=== PATIENT | male | born 1975 | race Caucasian/White ===

== ENCOUNTER 2025-03-29 14:11 | Inpatient (IN) | payer BC, SELFPAY ==
[2025-03-29] VITALS (13 sets, daily range): BP systolic 120–149; BP diastolic 76–91; PULSE 82–103; RESP 12–24; TEMP 36.4–36.9; O2SAT 93–98; BMI 37.8
--- NOTE | ~2025-03-29 | XR_ITS ---
XR chest 1V portable Ordering provider: Mau Hart MD History: 50 years Male with . stemi . Comparison: None. FINDINGS: MEDIASTINUM: The cardiac silhouette is not enlarged. Congestive [place]. LUNGS: No infiltrates, effusions or pneumothorax. Prominent bronchovascular markings in the lower lob es with bilateral septal thickening which may indicate pulmonary edema versus pneumonitis. Clinical c orrelation and follow-up advised. OTHER: No free air under the diaphragm. Degenerative spine. IMPRESSION: Prominent bronchovascular markings in the lower lobes with septal thickening which may indicate pneum onitis versus pulmonary edema. Clinical correlation and follow-up advised. Reviewed, dictated and finalized at location A. IMPRESSION: Prominent bronchovascular markings in the lower lobes with septal thickening wh ich may indicate pneumonitis versus pulmonary edema. Clinical correlation and f ollow-up advised.
--- NOTE | 2025-03-29 14:16 | ECG_ITS ---
Test Date: 2025-03-29 14:17:35 Measurements Intervals [place] Rate: 92 P: 24 NH: 162 QRS: -16 QRSD: 98 T: 29 QT: 350 QTc: 435 Interpretive Statements SINUS RHYTHM POSSIBLE RIGHT VENTRICULAR CONDUCTION DELAY [RSR (QR) IN V1/V2] ANTERIOR MYOCARDIAL INFARCTION , OF INDETERMINATE AGE [40+ ms Q WAVE AND/OR ST/T ABNORMALITY IN V3/V4] ANTERIOR ST-ELEVATION, CONSISTENT WITH ACUTE INJURY PATTERN CRITICAL ECG No previous ECG available for comparison Electronically Signed On 03-29-2025 16:06:28 CDT by Rod Messina M.D.
[2025-03-29 14:24] LABS: Hematocrit 47.5 % (42.0-52.0); Hemoglobin 16.7 g/dL (14.0-18.0); Immature Granulocyte Percent A 0.8 % (0-0.5); Lymphocytes Absolute Auto 1.87 K/mm3 (0.9-3.2); Mean Corpuscular HGB Conc 35.2 g/dl (32-36); Mean Corpuscular Hemoglobin 31.6 pg (26-34); Mean Corpuscular Volume 89.8 fl (80-100); Nucleated Red Blood Cells Absolute Auto 0.000 K/mm3 (0.0-0.012); Nucleated Red Blood Cells Perc 0.0 % (0.0-0.2); Platelet Count Result 280 k/mm3 (150-375); Red Blood Count 5.29 M/mm3 (4.6-6.20); White Blood Count 10.7 K/mm3 (4.5-10.0)
--- OUTSIDE RECORDS SUMMARY | 2025-03-29 14:27 | XMS_ITS | Data Portability ---
Author Organization [facility] Address [address] [place] [address] Assessment Encounter Date Assessment Date Assessment LastModified by Organization Details LastModified Time 02/08/2022 02/08/2022 1 ppd x 31 years [email or web address] Not available 02/08/2022 11:44:59 Plan of Treatment Reminders Order Date Submit Date Provider Last Modified By Organization Details Last Modified Time Details Appointments ANY 15 2024 09:15A Karina peterson MD Not available Not available Not available Lab CMP, serum or plasma 2024 025 DANIEL LABBERNARDO, [address] [place], [place] [address]erlin Reza, [facility] [address], [place], [address], 02/14/2025 14:38:45 microa lbumin /creat inine, mass ratio, urine 2024 025 DANIEL LABBERNARDO, [facility] Reza, [facility] [address], [place], [address], 02/14/2025 14:38:45 microa lbumin /creat inine, mass ratio, urine 2023 024 DANIEL HAMILTON, [facility] Reza, [address], [place], [address], 12/28/2023 10:12:42 CMP, serum or plasma 2023 024 DANIEL HAMILTON, [facility]ra Reza, [address], [place], [address], 12/28/2023 10:12:44 lipid panel, serum 2023 024 [place], [address] [facility], [address], [place], [address], 12/28/2023 10:12:43 TSH, ultra- sensit sathya, serum 2023 024 [facility], [address] [facility], [address], [place], [address], 12/28/2023 10:12:45 CMP, serum or plasma [address] ([facility]), [address] [place], [address], 11/21/2022 13:58:31 lipid panel, serum 2021 022 [facility] ([facility]), [address] [place], [address], 11/03/2022 11:43:32 microa lbumin /creat inine, mass ratio, urine [address] ([facility]), [address] [place], [address], 11/21/2022 13:58:31 Referral pulmon ologis t referr julissa - Sx c/w sleep apnea and home sleep study + 2021 022 [facility], [address] [facility], [facility] [address], [place], [address], 02/07/2023 14:48:20 plasti c surgeo n referr al 2021 [email or web address] Not available 06/30/2022 10:52:11 Procedures None record ed. Surgeries None record ed. Imaging LDCT, chest, for lung cancer screen ing - 1 PPD x 38 years 2024 025 [facility] ([facility]), [address] [place], [address], 02/28/2025 09:23:59 XR, chest, 2 view - cough 2024 025 [facility] Not available 03/20/2025 10:28:49 LDCT, chest, for lung cancer screen ing - 1 ppd x 37 years, wandaen t smoker , schedu le after birthd ay! 2023 024 [facility] ([facility]), [address] [place], [address], 03/08/2024 15:01:43 XR, chest, 2 view 2021 022 [facility] ([facility]), [address] [place], [address], 02/14/2023 15:37:10 Medication Orders Breztr i Aerosp here 160 mcg-9m cg-4.8 mcg/ac tuatio n HFA aeroso l inhale r 2024 025 [facility] [address], [address] [place], [address], 02/13/2025 10:52:35 doxycy charles hyclat e 100 mg capsul e 2024 025 [facility] [address], [address], [address], 12/19/2024 10:38:02 predni sone 20 mg tablet 2024 025 [facility] [address], [address] [place], [address], 12/19/2024 10:38:02 Treleg y Ellipt a 100 mcg-62 .5 mcg-25 mcg powder for inhala tion 2024 025 [facility] [address], [address] [place], [address], 12/19/2024 10:38:01 albute rol sulfat e HFA 90 mcg/ac tuatio n aeroso l inhale r 2024 025 [facility] [address], [address] [place], [address], 12/19/2024 10:38:01 amlodi pine 10 mg tablet 2023 024 [facility] [address], [address] [place] [address], [address], 12/27/2023 17:09:28 hydroc hlorot hiazid e 25 mg tablet 2023 024 [facility] [address], [address] [place] [address], [address], 12/27/2023 17:09:30 losart an 100 mg tablet 2023 024 [facility] [address], [address] [place] [address], [address], 12/27/2023 17:09:32 atorva statin 40 mg tablet 2023 024 [facility] [address], [address] [place] [address], [address], 12/27/2023 17:09:30 losart an 100 mg tablet 2021 022 [facility] [address], [address] [place] [address], [address], 08/24/2022 03:32:44 albute rol sulfat e HFA 90 mcg/ac tuatio n aeroso l inhale r 2021 022 [facility] [address], [address] [place], [address], 08/18/2022 14:00:30 doxycy charles hyclat e 100 mg capsul e 2021 [facility] [address], [address] [place] [address], [address], 08/18/2022 14:00:37 Chanti x Starti ng Month Box 0.5 mg (11)-1 mg (42) tablet s in dose pack 2021 [facility] [address], [address] [place] [address], [address], 02/08/2022 11:58:06 Chanti x Contin uing Month Box 1 mg tablet 2021 [facility] [address], [address] [place] [address], [address], 02/08/2022 11:58:09 Patient TargetsNo targets recorded. Patient Instructions Encounter Date Encounter Id Patient Instructions Last Modified By Organization Details Last Modified Time 02/08/2022 [id number] A healthy lifestyle: care instructions [email or web address] Not available 02/08/2022 14:10:39 tobacco cessation [email or web address] Not available 02/08/2022 11:57:57 FU 6 months - labs, sleep eval. [email or web address] Not available 02/08/2022 14:10:39 08/18/2022 [id number] FU two weeks BP recheck hlucasfoster Not available 08/18/2022 14:10:12 12/27/2023 [id number] FU one year [email or web address] Not available 12/27/2023 17:08:01 12/19/2024 [id number] A healthy lifestyle: care instructions [email or web address] Not available 12/19/2024 10:41:01 Quitting Tobacco: Care Instructions [email or web address] Not available 12/19/2024 10:41:01 Has FU next month and will keep appt. [email or web address] Not available 12/19/2024 10:40:01 02/13/2025 [id number] A healthy lifestyle: care instructions [email or web address] Not available 02/13/2025 12:33:03 Quitting Tobacco: Care Instructions [email or web address] Not available 02/13/2025 12:33:03 LDCT schedule February 25 at 0900 and pt will be notified by phone. [email or web address] Not available 02/13/2025 12:33:02 Reason for Referral Plastic Surgeon Referral for Lump on face cystic lesion on face - pt should contact his insurance to confirm [facility] Referring Physician: Nallely Rollins, [facility], Encounter Date: 02/08/2022 Classroom Teacher Referral for O bstructive sleep apnea syndrome Obstructive sleep apnea syndrome Sx c/w sleep apnea and home sleep study + Referring Physician: Nallely Rollins [facility], Encounter Date: 08/18/2022 Results Created Date Observation Date Name Description Value Unit Range Abnormal Flag Note LastModifiedBy Organization Detail LastModifiedTime 12/27/19 24 12/28/2023 ALBUM IN/CR EAT RATIO , GEOVANNI Collins UR creatinine, urine 128.1 mg/dL notest ab. Not Available [facility] ([facility]) [address] [facility], [place], [address], 12/28/2023 10:12:42 12/27/19 24 12/28/2023 ALBUM IN/CR EAT RATIO , GEOVANNI M UR albumin, urine 3.8 ug/mL notest ab. Not Available [facility] ([facility]) [address] [place], [address], 12/28/2023 10:12:42 12/27/19 24 12/28/2023 ALBUM IN/CR EAT RATIO , RANDO M UR alb/creat ratio 3 mg/g_ creat 0-29 Ines l: 0 - 29 Moder ately incre ased: 30 - 300 Sever smitha incre ased: >300 Not Available [facility] ([facility]) [address] [facility], [place], [address], 12/28/2023 10:12:42 12/27/19 24 12/28/2023 LIPID PANEL cholesterol, total 131 mg/dL 100-19 9 Not Available [facility] ([facility]) [address] [place], [address], 12/28/2023 10:12:43 12/27/19 24 12/28/2023 LIPID PANEL triglyceride s 92 mg/dL 0-149 Not Available [facility] ([facility]) [address] [place], [address], 12/28/2023 10:12:43 12/27/19 24 12/28/2023 LIPID PANEL HDL cholesterol 57 mg/dL >39 Not Available [facility] ([facility]) [address] [place], [address], 12/28/2023 10:12:43 12/27/19 24 12/28/2023 LIPID PANEL VLDL cholesterol zurdo 17 mg/dL 5-40 Not Available [facility] ([facility]) [address] [place], [address], 12/28/2023 10:12:43 12/27/19 24 12/28/2023 LIPID PANEL LDL chol calc (nih) 57 mg/dL 0-99 Not Available [facility] ([facility]) [address] [place], [address], 12/28/2023 10:12:43 12/27/19 24 12/28/2023 COMP. METAB OLIC PANEL (14) glucose 83 mg/dL 70-99 Not Available [facility] ([facility]) [address] [place], [address], 12/28/2023 10:12:44 12/27/19 24 12/28/2023 COMP. METAB OLIC PANEL (14) BUN 11 mg/dL 6-24 Not Available [facility] ([facility]) [address] [place], [address], 12/28/2023 10:12:44 12/27/19 24 12/28/2023 COMP. METAB OLIC PANEL (14) creatinine 1.25 mg/dL 0.76-1 .27 Not Available [facility] ([facility]) [address] [facility], [place], [address], 12/28/2023 10:12:44 12/27/19 24 12/28/2023 COMP. METAB OLIC PANEL (14) eGFR 71 mL/mi n/1.7 3 >59 Not Available [facility] ([facility]) [address] [facility], [place], [address], 12/28/2023 10:12:44 12/27/19 24 12/28/2023 COMP. METAB OLIC PANEL (14) BUN/creatini ne ratio 9 9-20 Not Available [facility] ([facility]) [address] [facility], [place], [address], 12/28/2023 10:12:44 12/27/19 24 12/28/2023 COMP. METAB OLIC PANEL (14) sodium 138 mmol/ L 134-14 4 Not Available [facility] ([facility]) [address] [facility], [place], [address], 12/28/2023 10:12:44 12/27/19 24 12/28/2023 COMP. METAB OLIC PANEL (14) potassium 4.2 mmol/ L 3.5-5. 2 Not Available [facility] ([facility]) [address] [facility], [place], [address], 12/28/2023 10:12:44 12/27/19 24 12/28/2023 COMP. METAB OLIC PANEL (14) chloride 98 mmol/ L 96-106 Not Available [facility] ([facility]) [address] [facility], [place], [address], 12/28/2023 10:12:44 12/27/19 24 12/28/2023 COMP. METAB OLIC PANEL (14) carbon dioxide, total 25 mmol/ L 20-29 Not Available [facility] ([facility]) [address] [facility], [place], [address], 12/28/2023 10:12:44 12/27/19 24 12/28/2023 COMP. METAB OLIC PANEL (14) calcium 9.4 mg/dL 8.7-10 .2 Not Available [facility] ([facility]) [address] [facility], [place], [address], 12/28/2023 10:12:44 12/27/19 24 12/28/2023 COMP. METAB OLIC PANEL (14) protein, total 7.2 g/dL 6.0-8. 5 Not Available [facility] ([facility]) [address] [facility], [place], [address], 12/28/2023 10:12:44 12/27/19 24 12/28/2023 COMP. METAB OLIC PANEL (14) albumin 4.7 g/dL 4.1-5. 1 Not Available [facility] ([facility]) [address] [facility], [place], [address], 12/28/2023 10:12:44 12/27/19 24 12/28/2023 COMP. METAB OLIC PANEL (14) globulin, total 2.5 g/dL 1.5-4. 5 Not Available [facility] ([facility]) [address] [place], [address], 12/28/2023 10:12:44 12/27/19 24 12/28/2023 COMP. METAB OLIC PANEL (14) A/G ratio 1.9 1.2-2. 2 Not Available [facility] ([facility]) [address] [facility], [place], [address], 12/28/2023 10:12:44 12/27/19 24 12/28/2023 COMP. METAB OLIC PANEL (14) bilirubin, total 0.5 mg/dL 0.0-1. 2 Not Available [facility] ([facility]) [address] [place], [address], 12/28/2023 10:12:44 12/27/19 24 12/28/2023 COMP. METAB OLIC PANEL (14) alkaline phosphatase 53 IU/L 44-121 Not Available [facility]) [address] [place], [address], 12/28/2023 10:12:44 12/27/19 24 12/28/2023 COMP. METAB OLIC PANEL (14) AST (SGOT) 25 IU/L 0-40 Not Available [facility] ([facility]) [address] [facility], [place], [address], 12/28/2023 10:12:44 12/27/19 24 12/28/2023 COMP. METAB OLIC PANEL (14) ALT (SGPT) 36 IU/L 0-44 Not Available [facility] ([facility]) [address] [place], [address], 12/28/2023 10:12:44 12/27/19 24 12/28/2023 TSH RFX ON ABNOR MAL TO FREE T4 TSH 0.707 uIU/m L 0.450- 4.500 Not Available [facility] ([facility]) [address] [place], [address], 12/28/2023 10:12:45 02/14/20 25 02/14/2025 ALBUM IN/CR EAT RATIO , RANDO M UR creatinine, urine 104.6 mg/dL notest ab. Not Available [facility] ([facility]) [address] [place], [address], 02/14/2025 14:38:45 02/14/20 25 02/14/2025 ALBUM IN/CR EAT RATIO , RANDO M UR albumin, urine <3.0 ug/mL notest ab. Not Available [facility] ([facility]) [address] [facility], [place], [address], 02/14/2025 14:38:45 02/14/20 25 02/14/2025 ALBUM IN/CR EAT RATIO , RANDO M UR alb/creat ratio <3 Ines l: 0 - 29 Moder ately incre ased: 30 - 300 Sever smitha incre ased: >300 Not Available [facility] ([facility]) [address] [place], [address], 02/14/2025 14:38:45 02/14/20 25 02/14/2025 COMP. METAB OLIC PANEL (14) glucose 85 mg/dL 70-99 Not Available [facility] ([facility]) [address] [facility], [place], [address], 02/14/2025 14:38:45 02/14/20 25 02/14/2025 COMP. METAB OLIC PANEL (14) BUN 12 mg/dL 6-24 Not Available [facility] ([facility]) [address] [place], [address], 02/14/2025 14:38:45 02/14/20 25 02/14/2025 COMP. METAB OLIC PANEL (14) creatinine 1.44 mg/dL 0.76-1 .27 above high normal Not Available [facility] ([facility]) [address] [place], [address], 02/14/2025 14:38:45 02/14/20 25 02/14/2025 COMP. METAB OLIC PANEL (14) eGFR 59 mL/mi n/1.7 3 >59 below low normal Not Available [facility] ([facility]) [address] [place], [address], 02/14/2025 14:38:45 02/14/20 25 02/14/2025 COMP. METAB OLIC PANEL (14) BUN/creatini ne ratio 8 9-20 below low normal Not Available [facility] ([facility]) [address] [place], [address], 02/14/2025 14:38:45 02/14/20 25 02/14/2025 COMP. METAB OLIC PANEL (14) sodium 135 mmol/ L 134-14 4 Not Available [facility] ([facility]) [address] [place], [address], 02/14/2025 14:38:45 02/14/20 25 02/14/2025 COMP. METAB OLIC PANEL (14) potassium 3.8 mmol/ L 3.5-5. 2 Not Available [facility] ([facility]) [address] [facility] [place], [address], 02/14/2025 14:38:45 02/14/20 25 02/14/2025 COMP. METAB OLIC PANEL (14) chloride 94 mmol/ L 96-106 below low normal Not Available [facility] ([facility]) [address] [facility] [place], [address], 02/14/2025 14:38:45 02/14/20 25 02/14/2025 COMP. METAB OLIC PANEL (14) carbon dioxide, total 24 mmol/ L 20-29 Not Available [facility] ([facility]) [address] [facility] [place], [address], 02/14/2025 14:38:45 02/14/20 25 02/14/2025 COMP. METAB OLIC PANEL (14) calcium 9.4 mg/dL 8.7-10 .2 Not Available [facility] ([facility]) [address] [facility] [place], [address], 02/14/2025 14:38:45 02/14/20 25 02/14/2025 COMP. METAB OLIC PANEL (14) protein, total 7.3 g/dL 6.0-8. 5 Not Available [facility] ([facility]) [address] [facility], [place], [address], 02/14/2025 14:38:45 02/14/20 25 02/14/2025 COMP. METAB OLIC PANEL (14) albumin 4.5 g/dL 3.8-4. 9 Not Available [facility] ([facility]) [address], [place], [address], 02/14/2025 14:38:45 02/14/20 25 02/14/2025 COMP. METAB OLIC PANEL (14) globulin, total 2.8 g/dL 1.5-4. 5 Not Available [facility] ([facility]) [address] [place], [address], 02/14/2025 14:38:45 02/14/20 25 02/14/2025 COMP. METAB OLIC PANEL (14) bilirubin, total 1.0 mg/dL 0.0-1. 2 Not Available [facility] ([facility]) [address], [place], [address], 02/14/2025 14:38:45 02/14/20 25 02/14/2025 COMP. METAB OLIC PANEL (14) alkaline phosphatase 71 IU/L 44-121 Not Available [facility] ([facility]) [address] [place], [address], 02/14/2025 14:38:45 02/14/20 25 02/14/2025 COMP. METAB OLIC PANEL (14) AST (SGOT) 32 IU/L 0-40 Not Available [facility] ([facility]) [address] [place], [address], 02/14/2025 14:38:45 02/14/20 25 02/14/2025 COMP. METAB OLIC PANEL (14) ALT (SGPT) 47 IU/L 0-44 above high normal Not Available [facility] ([facility]) [address] [place], [address], 02/14/2025 14:38:45 02/29/20 25 02/28/2025 LDCT, chest , for lung evert thomas No observ ation record ed. [facility] [address] [facility], [place], [address], 03/03/2025 14:05:43 Result Notes None recorded. Problems Name Problem SNOMED Code Status Onset Date Resolution Date Notes Provider Name and Address Organization Details Recorded Time Hypertensi ve disorder 26620049 Active 2018 Not Available [facility] 2 02:21:02 Hyperlipid emia 28425694 Active 2018 Not Available [facility] 2 02:21:02 Obese 189473927 Active 2018 Not Available [facility] 2 02:21:02 Tobacco user 089007714 Active 2018 Not Available [facility] 2 02:21:02 Problem drinker 318937614 Active 2018 cutting back Not Available [facility] 2 02:21:02 Sleep apnea 25528928 Active 2020 + home sleep study but not able to complete formal study. Not Available [facility] 2 02:21:02 Chronic kidney disease 638130798 Active 2020 Not Available [facility] 2 02:21:02 Problem Notes None recorded. Medical Equipment None Reported. Allergies No known drug allergies Medications Name Sig Start Date Stop Date Status Note LastModified by Organization Details LastModified Time losartan 50 mg tablet Take 1 tablet by mouth once daily 12/26 completed Not Available Not Available Not Available atorvastati n 40 mg tablet TAKE 1 TABLET BY MOUTH ONCE DAILY active Not Available Not Available No t Available doxycycline hyclate 100 mg capsule TAKE 1 CAPSULE BY MOUTH TWICE DAILY FOR 7 DAYS active Not Available Not Available No t Available prednisone 20 mg tablet TAKE 2 TABLETS BY MOUTH ONCE DAILY FOR 5 DAYS active Not Available Not Available No t Available acetaminoph en 300 mg-codeine 30 mg tablet TAKE 1 TABLET BY MOUTH EVERY 6 HOURS NEEDED FOR PAIN 12/26 completed Not Available Not Available Not Available amoxicillin 875 mg tablet TAKE 1 TABLET BY MOUTH TWICE DAILY UNTIL GONE 12/26 completed Not Available Not Available Not Available amlodipine 10 mg tablet TAKE 1 TABLET BY MOUTH ONCE DAILY active Not Available Not Available No t Available losartan 25 mg tablet Take 2 tablets by mouth once daily 12/26 completed Not Available Not Available Not Available hydrochloro thiazide 25 mg tablet TAKE 1 TABLET BY MOUTH ONCE DAILY active Not Available Not Available No t Available albuterol sulfate HFA 90 mcg/actuati on aerosol inhaler INHALE 2 PUFFS BY MOUTH EVERY 4 HOURS active Not Available Not Available No t Available losartan 100 mg tablet TAKE 1 TABLET BY MOUTH ONCE DAILY active Not Available Not Available No t Available amoxicillin 500 mg-potassiu m clavulanate 125 mg tablet TAKE 1 TABLET BY MOUTH THREE TIMES DAILY FOR 7 DAYS 12/26 completed Not Available Not Available Not Available varenicline tartrate 1 mg tablet TAKE 1 TABLET BY MOUTH TWICE DAILY active Not Available Not Available No t Available varenicline tartrate 0.5 mg (11)-1 mg (42) tablets in a dose pack Take as directed 2021 active Not Available Not Available Not [facility] Trelegy Ellipta 100 mcg-62.5 mcg-25 mcg powder for inhalation Inhale 1 puff every day by inhalatio n route for 90 days. 2024 active Not Available Not Available Not Avai lable Breztri Aerosphere 160 mcg-9mcg-4. 8mcg/actuat ion HFA aerosol inhaler INHALE 2 PUFFS BY MOUTH TWICE DAILY FOR 28 DAYS active Not Available Not Available No t Available Vitals Date Recorded Oxygen saturation Oxygen saturation in Arterial blood by Pulse oximetry Provider Name and Address Organization Details Last Updated DateTime 12/19/2024 94 % 94 % Nallely Rollins MD Attn: Accounting,[address] [place], [address], [place] - [facility] IN[facility]ES [facility] 12/19/2024 10:37:45 Date Recorded Body height Body mass index (BMI) Body weight Heart rate Body temperature Systolic And Diastolic Provider Name and Address Organization Details Last Updated DateTime 182.88 cm 38.8 kg/m2 609601. 42 g 83 /min 98.3 [degF] 153/91 mm[Hg] America Ac MA [facility] 5 10:10:16 Date Recorded Body mass index (BMI) Body height Provider Name and Address Organization Details Last Updated DateTime 12/27/2023 36.6 kg/m2 182.88 cm Nallely Rollins MD Attn: Accounting,[address] [facility], [place], [address], [facility] 12/27/2023 17:03:47 Date Recorded Body weight Heart rate Body temperature Systolic And Diastolic Provider Name and Address Organization Details Last Updated DateTime 12/27/2023 010763.94 g 83 /min 98.6 [degF] 128/85 mm[Hg] America Ac MA [facility] 12/27/2023 16:08:20 Date Recorded Body height Body mass index (BMI) Body weight Oxygen saturation Oxygen saturation in Arterial blood by Pulse oximetry Body temperature Respiratory rate Systolic And Diastolic Provider Name and Address Organization Details Last Updated DateTime 2 182.88 cm 33.6 kg/m2 617270. 91 g 0 % 0 % 97.9 [degF] 20 /min 124/80 mm[Hg] Jurgen Kerr MA [facility] 2 11:21:45 Date Recorded Body height Body mass index (BMI) Body weight Body temperature Heart rate Systolic And Diastolic Provider Name and Address Organization Details Last Updated DateTime 5 182.88 cm 38.4 kg/m2 896533. 64 g 97.4 [degF] 84 /min 148/84 mm[Hg] Elma Landa [facility] 5 09:51:40 Social History Question Answer Notes LastModified by Organizat ion Details LastModified Time Tobacco Smoking Status Current Every Day Smoker Elma Landa [facility] 06/13/2019 11:34:06 What Is Your Level Of Caffeine Consumption? Moderate Information not available 12/27/2023 What Was The Date Of Your Most Recent Tobacco Screening? 02/13/2025 Information not available 02/13/2025 What Is Your Current Pack Years? 30ormorepacky ears Information not available 02/08/2022 At What Age Did You Start Smoking Tobacco? 16 Information not available 02/08/2022 How Much Tobacco Do You Smoke? 0.25 PPD Information not available 12/27/2023 Has Tobacco Cessation Counseling Been Provided? Yes Information not available 02/08/2022 On What Date Was Tobacco Cessation Counseling Provided? 02/13/2025 Information not available 02/13/2025 How Many Years Have You Smoked Tobacco? 31 Information not available 02/08/2022 Sex: Male Functional Status Question Answer Note LastModified by Organizat ion Details LastModified Time Do you use any illicit or recreational drugs? No Information not available 12/27/2023 Do you or have you ever used any other forms of tobacco or nicotine? No Information not available 02/08/2022 What is your level of alcohol consumption? Occasional Information not available 12/27/2023 Mental Status None recorded. Family History Nothing Reported. Medical History No medical history recorded. Immunizations Vaccine Type Date Status Note Provider Nam e and Address Organization Details Recorded Time COVID-19, mRNA, LNP-S, PF, 100 mcg/0.5mL dose or 50 mcg/0.25mL dose 10/24/2020 completed Not Available [facility] 5 09:39:52 COVID-19, mRNA, LNP-S, PF, 100 mcg/0.5mL dose or 50 mcg/0.25mL dose 11/21/2020 completed Not Available [facility] 5 09:39:52 Influenza, split virus, quadrivalent, PF 07/18/2019 completed Not Available [facility] 0 02:39:49 Influenza, split virus, quadrivalent, PF 08/17/2021 completed Jurgen Kerr MA [facility] [place], [place] - [place] 08/17/2021 13:20:34 Past Encounters Encounter ID Performer Location Encounter Start Date Encounter Closed Date Diagnosis/Indication Diagnosis SNOMED-CT Code Diagnosis ICD10 Code Diagnosis Note [id number] [facility] [address] [place] [address] 06/13/2019 11:23:31 06/13/2019 12:28:00 Body mass index 30+ - obesity 262468758 Z68.34 Smoker 23716719 F17.200 Essential hypertension 56052308 I10 Recheck BP still high, no sx. Labs now and restart meds. Stop smoking and cut back to no more that 2 x 12 oz beer per night. Chest pain 66320605 R07. 9 Chest pain should be evaluated in ER Acute bronchitis 3550257 2 J20.9 Failure cough to resolve, will need additional evaluation . Tobacco user 601210247 Z 72.0 Risks, benefits side effects and time to onset medication reviewed. Prev able to cut back with Chantix. [id number] Nallely vanessa MD [facility] (Adult Med) [address] [place] [address] 07/18/2019 10:34:23 07/18/2019 13:52:16 Hyperlipidemia 68101759 E78.5 Risks, benefits side effects and time to onset medication reviewed. Strong family hx CAD early (sibs and father < 50 wwith AK) Hyperkalemia 21211286 E8 7.5 Diabetes mellitus 762350 09 E11.9 Active or passive immunization 836260969 Z23 Hypertensive disorder 38 760532 I10 BP elevated today (better on recheck but not optimal). Recheck BMP/potass ium today. Bblocker vs linda? Communicat e with Cards office. [id number] Nallely vanessa MD [facility] (Adult Med) [address] [place] [address] 11/14/2019 15:55:08 11/15/2019 08:14:19 Essential hypertension 54618503 I10 Add losartan and labs in 2 weeks [id number] Nallely vanessa MD [facility] (Adult Med) [address] [place] [address] 12/24/2020 12:28:59 12/25/2020 11:35:52 Hyperlipidemia 12400629 E78.5 On statin. Strong family hx CAD early (sibs and father < 50 wwith AK) Hypertensive disorder 38 660753 I10 BP elevated today (better on recheck but not optimal). Recheck BMP/potass ium today. Bblocker vs linda? Communicat e with Cards office. Tobacco user 348921007 Z 72.0 Has cut back but continues to smoke; continues to contemplat e quit. Obstructiv e sleep apnea syndrome 45235127 G47.33 Suspect dx based on sx and + home study. Needs formal and encouraged to fu with pulm. [id number] Nallely vanessa MD [facility] (Peds) [address] [place] [address] 08/17/2021 12:20:07 08/19/2021 11:16:37 Active or passive immunization 836478336 Z23 Benign par oxysmal positional vertigo 457851908 H81.11 Modified Chloe demonstrat ion for right side, handout provided and instructio ns regarding ezzai - how to arabia demos. If sx not better 1-2 weeks consider MRI given duration and increased frequency of episodes over last year. Hyperlipidemia 03577841 E78.5 On statin. Strong family hx CAD early (sibs and father < 50 with AK) Hypertensive disorder 38 199301 I10 BP at goal. Tobacco user 297120158 Z 72.0 Has cut back but continues to smoke; continues to contemplat e quit. Obesity 428468295 E66.9 Screening for malignant neoplasm of colon 041652164 Z12.11 Chronic ki dney disease 366187905 N18.9 Monitor q 6 months [id number] Nallely vanessa MD [facility] (Peds) [address] [place] [address] 02/08/2022 11:04:15 02/09/2022 10:04:24 Lump on face 134433351 R22.0 suspect sebaceous cyst Tobacco user 255791317 Z 72.0 Has cut back but continues to smoke 1ppd; continues to contemplat e quit. Chantix helpful in past. Hypertensive disorder 38 354069 I10 BP at goal. Sleep apnea 99481726 G47 .30 Work schedule makes it difficult to coordinate Dr. ricci. After plastics, needs eventual pulm eval. Obesity 656118683 E66.9 [id number] Nallely vanessa MD [facility] (Adult Med) [address] [place] [address] 08/18/2022 09:49:35 09/05/2022 11:49:36 Essential hypertension 75714082 I10 Above goal diastolic. Increase losartan from 50 to 100 mg and phone fu 3 weeks. Acute bronchitis 0711859 2 J20.9 bronchitis vs pneumonia vs CPPD exacerbati on, cannot r/o cardiac etiology over phone but sx most suggestive of infection. Advised urgent care/er eval but he is unlikely to go. CXR order sent to [facility]. Empiric tx copd exacerbati on. TO ER FOR ANY WORSENING OF SX Obstructiv e sleep apnea syndrome 54281935 G47.33 Suspect dx based on sx and + home study. Needs formal and encouraged to fu with pulm. [id number] Nallely vanessa MD [facility] (Adult Med) [address] [place] [address] 12/27/2023 15:50:54 12/28/2023 08:51:06 Chronic kidney disease 852882749 N18.9 Monitor q 6 months recommende d prev. Hyperlipidemia 69599549 E78.5 On statin. Strong family hx CAD early (sibs and father < 50 with AK) Hypertensive disorder 38 710062 I10 BP at goal. Sleep apnea 33713489 G47 .30 Work schedule makes it difficult to coordinate Dr. ricci. He understand s when able to return to sleep med, I'll refer. Tobacco user 812580915 Z 72.0 Has cut back but continues to smoke 5 per ppd; continues to contemplat e quit. Chantix helpful 1ppd x 37 years Unintentio nal weight gain 2440975992 37790 R63.5 25 lb wt gain in last two years. Plans walk more at work and outside with weather improving. Screening for malignant neoplasm of colon 125663997 Z12.11 Discussed options when due 08/2024. Will decide closer to due date. 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 Encouraged home checks and recheck at fu in 4 weeks. Chronic ob structive pulmonary disease 07683321 J44.9 Chronic intermitte nt cough and heavy tobacco use. Presume COPD, had recent spirometry at work and will fax results. Acute bronchitis 9083322 2 J20.9 Bronchitis + COPD exacerbati on. CXR if not improved in 48 hours Obesity 274013967 E66.9 Smoker 23282799 F17.791 [id number] Nallely vanessa MD [facility] (Adult Med) [address] [place] [address] 02/13/2025 09:37:38 02/14/2025 10:50:08 Essential hypertension 14571236 I10 BP Goal: Less than 140/90BP Controlled : yesBy home measures.H ealthy Weight: 6'= 140-183 lbsDiscuss ed: Low sodium balanced diet, moderate exercise at least 3-4 times per week for an average of 40 minutes, limiting alcohol to 1 drink per day (F) or 2 drinks per day (M), and smoking cessation if currently smoking.Ne xt Visit: 6month(s) Moderate c hronic obstructive pulmonary disease 524327780 J44.9 Chronic intermitte nt cough and heavy tobacco use. Presume COPD, had recent spirometry at work and he requested results be faxed to his chart but not yet received. Marked improvemen t of sx on Trelegy but insurance won't refill. Options include manufactur er coupon or try switch to Breztri. Smoker 66598034 F17.200 Has cut back substantia lly. Still overdue for LDCT and will attempt coordinate . Obese class II 952304606 1 30916 E66.812 Encouraged eliminate soda, remain active. Health Concerns Section Related Observation LastModified by Organization Jing moreno LastModified Time None Recorded Concern Status LastModified by Organization Details LastModified Time None Recorded Advance Directives Directive None Recorded Payers Insurance Date Sequence Insurance Name Policy Number Policy Meza Covered Member ID Meza Member ID Guarantor Name 02/13/2025 1 [employer]) [id number] Freddy Carmen [id number] Freddy Carmen Notes Date Note Type Note Provider Name and Address Organization Details Recorded Time 02/08/2022 text/html HTN - No recent home measures but at goal in office today. Has cut back etoh and tobacco (1PPD). Wt stable from last 6 months ago. Walking at work regularly. Suspect SUSAN - had + home sleep study but never formal study. Suspected sebacsous cyst R cheek; malodorous with any sweating and bothersome. Would like removed. Older sister dx with lung ca this year Nallely Rollins MD Attn: Accounting,[address] [facility], [place], [address], [place] [facility] 02/08/2022 15:02:58 08/18/2022 text/html HTN - home BPs 130s/90-100s.Sick x 10 days with cough, ARIZMENDI, malaise and pleuritic chest pain with cough/deep breath. Family with similar sx but resolved. Nallely Rollins MD Attn: Accounting,[address], [place], [address], [place] [facility] 11/14/2022 13:43:57 12/27/2023 text/html Last OV 08/2022 HTN - No recent home measures but at goal in office today. Trace edema distal legs at end of day. No orthopnea, pnd, arizmendi Suspect SUSAN - had + home sleep study but never formal study. States sleeping better than when had study 3 years ago. Older sister dx with lung ca 2 year ago Nallely Rollins MD Attn: Accounting,[address], [place], [address], [place] [facility] 12/27/2023 17:09:41 12/19/2024 text/html 49 yo with tobac co use, HTN, untreated SUSAN presenting with two week hx paroxysmal cough, rhinorrhea, congestion, wheeze. Sx wax and wane. No fever. Many years hx of intermittent paroxysms of cough that lead to transient 1-3 seconds of passing out. Negative cards eval 5 years ago. Has episode last week. Nallely Rollins MD Attn: Accounting,[address], [place], [address], [place] [facility] 12/19/2024 10:41:23 02/13/2025 text/html FU HTN and (presumed) COPD. Prev visit month ago with COPD exacerbation and elevated BP. Today reports marked improvement in chronic cough and ARIZMENDI with LAMA+LABA+ICS. Home BP measures mostly < 140/90. Nallely Rollins MD Attn: Accounting,[address], [place], [address], [place] [facility] 02/13/2025 12:33:49
--- OUTSIDE RECORDS SUMMARY | 2025-03-29 14:27 | XMS_ITS | Clinical Summary ---
Author Organization [facility] System Address [address] [place] [address] Care Team Providers Care Nutrition Intern Name Role Phone Germania Hess SECURITY MANAGEMENT SPECIALISTSummerC Primary Care Provider Social History Tobacco Use Types Packs/Day Years Used Date Smoking Tobacco: Never Assessed Sex and Gender Information Value Date Recorded Sex Assigned at Not on file Legal Sex Male 11:55 AM CDT Gender Identity Not on file Sexual Orientation Not on file Last Filed Vital Signs Vital Sign Reading Time Taken Comments Blood Pressure 178/108 02/08/2018 4:45 PM CDT Pulse 73 02/08/2018 4:45 PM CDT Temperature - - Respiratory Rate - - Oxygen Saturation - - Inhaled Oxygen Concentration - - Weight 101.6 kg (224 lb) 02/08/2018 4:45 PM CDT Height 182.9 cm (6') 02/08/2018 4:45 PM CDT Body Mass Index 30.38 02/08/2018 4:45 PM CDT Plan of Treatment Health Maintenance Due Date Last Done Comments Colorectal Cancer Screening Colonoscopy (10 Years) 1974 Annual Physical 1977 Hepatitis C 01/25/1992 DTaP, Tdap and Td Vaccines ( 1 - Tdap) 1993 Hepatitis B Vaccines (1 of 3 - 19+ 3-dose series) 1993 Pneumococcal Vaccine: 50+ Ye ars (1 of 1 - PCV) 01/25/2024 Zoster Vaccines (1 of 2) 01/25/2024 COVID-19 Vaccine (2023-2 5 season) 2024 Meningococcal B Vaccine Aged Out No l onger eligible based on patient's age to complete this topic Meningococcal Vaccine Aged Out No alfredo rima eligible based on patient's age to complete this topic RSV Immunizations Under 20 Months Aged Out No longer eligible based on patient's age to complete this topic Insurance [facility] Care Teams Nutrition Intern Relationship Specialty Start Date End Date Germania Hess NP-C [address] [place] [phone] PCP - General NURSE PRACTITIONER 03/29/18
--- OUTSIDE RECORDS SUMMARY | 2025-03-29 14:27 | XMS_ITS | Encounter Summary ---
Author Organization [facility] Address [address] [place] [address] Care Team Providers Care Sales Agent Pest Control Service Name Role Phone Germania Hess GAS MAIN FITTER HELPER-C Primary Care Provider [phone] Encounter Details Date Type Department Care Team (Late st Contact Info) Description 02/14/2018 Abstract [facility] Conversion Md, Generic Conversion, Social History Tobacco Use Types Packs/Day Years Used Date Smoking Tobacco: Never Assessed Sex and Gender Information Value Date Recorded Sex Assigned at Not on file Legal Sex Male 11:55 AM CDT Gender Identity Not on file Sexual Orientation Not on file documented as of this encounter Plan of Treatment Not on file documented as of this encounter Visit Diagnoses Not on filedocumented in this encounter Care Teams Sales Agent Pest Control Service Relationship Specialty Start Date End Date Germania Hess NP-C [address] [place] [address] PCP - General NURSE PRACTITIONER 03/29/18 documented as of this encounter
[2025-03-29 14:33] LABS: Alanine Aminotransferase 45 U/L (6-50); Albumin Level 4.1 g/dL (3.5-5.1); Alkaline Phosphatase 57 U/L (38-126); Anion Gap 10 mmol/L (4-12); Aspartate Amino Transferase 40 U/L (17-59); Bilirubin,Total 0.7 mg/dL (0.2-1.3); Blood Urea Nitrogen 15 mg/dL (9-20); Calcium 9.2 mg/dL (8.4-10.2); Carbon Dioxide 24 mmol/L (22-30); Chloride 99 mmol/L (98-107); Estimated CRCL calculation 90 ml/min; Estimated Glomerular Filt Rate > 60; Glucose 166 mg/dL (65-110); Potassium 3.6 mmol/L (3.4-5.0); Sodium 133 mmol/L (137-145); Total Protein 7.6 g/dL (6.3-8.2)
--- NOTE | 2025-03-29 14:33 | ED_ITS ---
HPI - Chest Pain General Chief Complaint: Chest Pain Stated Complaint: stemi Time Seen by Provider: 03/29/25 14:15 History of Present Illness HPI narrative: Patient is a 50-year-old male who presents the ER with chest pain. Sudden onset at 8:00 a.m.. Pressure and sharp in the center of his chest radiating to left shoulder. Has steadily increased throughout the day and is worse with movement. He is diaphoretic having some nausea. No history of RI but has pain it is above have heart attacks. Patient does have significant smoking history and is known have emphysema. He works at a [employer]. Patient received nitro try EMS's 3 as well as oral aspirin by EMS. STEMI declared prior to arrival at hospital. Related Data Home Medications ?Medication ?Instructions ?Recorded ?Confirmed ?Last Taken ?Type albuterol sulfate 90 mcg/actuation 2 puff inhalation .q4hr PRN SOB 03/29/25 03/29/25 Unknown History aerosol inhaler amlodipine 10 mg tablet 10 mg PO DAILY 03/29/25 03/29/25 03/29/25 History atorvastatin 40 mg tablet 40 mg PO QPM 03/29/25 03/29/25 03/28/25 History fluticasone fur. 100 mcg-umeclid 1 inh inhalation Q24H 03/29/25 03/29/25 03/28/25 History 62.5 mcg-vilant 25 mcg inhalat.powder (Trelegy Ellipta) hydrochlorothiazide 25 mg tablet 25 mg PO DAILY 03/29/25 03/29/25 03/29/25 History losartan 100 mg tablet 100 mg PO DAILY 03/29/25 03/29/25 03/29/25 History varenicline tartrate 1 mg tablet 1 mg PO BID 03/29/25 03/29/25 03/29/25 History Allergies Allergy/AdvReac Type Severity Reaction Status Date / Time No Known Allergies Allergy Verified 03/29/25 14:20 Review of Systems 2 Review of Systems: All systems reviewed & are unremarkable except as noted in HPI and below Constitutional: Constitutional: Reports no additional constitutional complaints Cardiovascular: Cardiovascular: Reports no additional cardiovascular complaints Respiratory: Respiratory: Reports no additional respiratory complaints Gastrointestinal: Gastrointestinal: Reports no additional gastrointestinal complaints Musculoskeletal: Musculoskeletal: Reports no additional musculoskeletal complaints [facility] Past Medical History Medical History Hyperlipidemia Hypertension COPD (chronic obstructive pulmonary disease) Social History Social History Smoking status: Current every day smoker Exam 2 Narrative: GENERAL: Ill-appearing, well-nourished, and in moderate distress. HEAD: Normocephalic, atraumatic. EYES: PERRL and EOMI. ENT: Mucous membranes moist. CHEST: Clear to auscultation. No respiratory distress. HEART: Regular rate and rhythm. Normal peripheral pulses. ABDOMEN: Soft, nontender, nondistended. EXTREMITIES: Normal range of motion. No edema. SKIN: Warm, diaphoretic, no rash. NEURO: Alert and oriented x3. PSYCH: Normal mood and affect. Course Course Emergency Course: 1438: Interventional cardiology and round. Patient has received IV heparin. It is been request that he not receive any more nitroglycerin due to hypertension. Patient will not receive Plavix/Brilinta at the request of Interventional Cardiology. He shower receive morphine for pain. Patient's is at his bedside after her and family have been informed of the situation. Vital Signs Vital signs: Vital Signs Temperature 97.6 F 03/29/25 14:05 Pulse Rate 103 H 03/29/25 14:05 Respiratory Rate 24 H 03/29/25 14:05 Blood Pressure 136/76 03/29/25 14:05 Pulse Oximetry 94 03/29/25 14:05 Temperature 97.6 F 03/29/25 14:05 Pulse Rate 99 03/29/25 17:03 Respiratory Rate 12 03/29/25 17:03 Blood Pressure 149/91 H 03/29/25 17:03 Pulse Oximetry 94 03/29/25 17:03 MDM - Chest Pain Lab Data 03/29/25 14:15 03/29/25 14:15 Labs: Lab Results 03/29/25 Range/Units 14:15 WBC 10.7 H (4.5-10.0) K/mm3 RBC 5.29 (4.6-6.20) M/mm3 Hgb 16.7 (14.0-18.0) g/dL Hct 47.5 (42.0-52.0) % MCV 89.8 (80-100) fl MCH 31.6 (26-34) pg MCHC 35.2 (32-36) g/dl RDW 12.8 (11.5-14.5) % Plt Count 280 (150-375) k/mm3 MPV 8.6 (7.4-10.4) fl Immature Gran % (Auto) 0.8 H (0-0.5) % Neut % (Auto) 71.4 (45.5-73.1) % Lymph % (Auto) 17.4 L (18.3-44.2) % Andrews % (Auto) 9.6 H (2.6-8.5) % Eos % (Auto) 0.1 (0-4.4) % Baso % (Auto) 0.7 (0.2-1.2) % Lymph # (Auto) 1.87 (0.9-3.2) K/mm3 Andrews # (Auto) 1.0 H (0.1-0.6) K/mm3 Eos # (Auto) 0.0 (0-0.3) K/mm3 Baso # (Auto) 0.1 (0.0-0.1) K/mm3 Abs Immat Gran (auto) 0.09 H (0.00-0.031) K/mm3 Absolute Neuts (auto) 7.7 H (1.3-6.7) K/mm3 Absolute Nucleated RBC 0.000 (0.0-0.012) K/mm3 Nucleated RBC % 0.0 (0.0-0.2) % PT 12.1 (11.1-14.7) Seconds INR 0.9 APTT 27.3 (22.3-36.8) Seconds Sodium 133 L (137-145) mmol/L Potassium 3.6 (3.4-5.0) mmol/L Chloride 99 (98-107) mmol/L Carbon Dioxide 24 (22-30) mmol/L Anion Gap 10 (4-12) mmol/L BUN 15 (9-20) mg/dL Creatinine 1.23 (0.7-1.3) mg/dL Estim Creat Clear Calc 90 ml/min Estimated GFR > 60 (59 - ) Glucose 166 H (65-110) mg/dL Calcium 9.2 (8.4-10.2) mg/dL Total Bilirubin 0.7 (0.2-1.3) mg/dL AST 40 (17-59) U/L ALT 45 (6-50) U/L Alkaline Phosphatase 57 (38-126) U/L Troponin I 0.308 H* (0.000-0.034) ng/mL NT-Pro-B Natriuret Pep 552 H (19.9-100) pg/mL Total Protein 7.6 (6.3-8.2) g/dL Albumin 4.1 (3.5-5.1) g/dL Imaging Data Radiologist's impression: Ordering Physician: Mau Hart MD Date of Service: 03/29/25 Procedure(s): XR chest 1V portable Accession Number(s): [id number] cc: Liam Bynum MD; Ayo, Nallely WRAY; Mau Hart MD~ XR chest 1V portable Ordering provider: Mau Hart MD History: 50 years Male with . stemi . Comparison: None. FINDINGS: MEDIASTINUM: The cardiac silhouette is not enlarged. Congestive wilton. LUNGS: No infiltrates, effusions or pneumothorax. Prominent bronchovascular markings in the lower lobes with bilateral septal thickening which may indicate pulmonary edema versus pneumonitis. Clinical correlation and follow-up advised. OTHER: No free air under the diaphragm. Degenerative spine. IMPRESSION: Prominent bronchovascular markings in the lower lobes with septal thickening which may indicate pneumonitis versus pulmonary edema. Clinical correlation and follow-up advised. Reviewed, dictated and finalized at location A. ECG Data EKG #1: ECG completion date: 03/29/25 ECG completion time: 14:17 Ischemic changes: acute STEMI EKG Interpretation: normal rate (92), sinus rhythm, ST elevation (V3/V4) and normal QRS Critical Care Time Critical Care Time Critical Care Time: Yes Total Critical Care Time: 35 Discharge Plan Discharge Clinical Impression: ST elevation (STEMI) myocardial infarction Patient Disposition: Still a Patient Condition: Stable
[2025-03-29 14:37] LABS: INR 0.9; Prothrombin Time 12.1 Seconds (11.1-14.7)
[2025-03-29 14:38] LABS: Partial Thromboplastin Time 27.3 Seconds (22.3-36.8)
--- NOTE | 2025-03-29 14:42 | PC.NURSE ---
stemi 1400 [facility] 1402 [address] 1403 [facility] 14[facility]
[2025-03-29 14:51] LABS: NT Pro B Type Natriuretic Pept 552 pg/mL (19.9-100); Troponin I 0.308 ng/mL (0.000-0.034)
[2025-03-29 15:59] LABS: MRSA (PCR) NOT DETECTED (NOT DETECTE)
--- NOTE | 2025-03-29 16:17 | WPDCARDPROC ---
Cardiac Cath Procedure Note Date of procedure:: 03/29/25 Performing physician:: Liam Bynum MD Date of service 03/29/2025 Indication:: Anterior STEMI Brief clinical history:: 50-year-old patient with history of morbid obesity, hypertension, hyperlipidemia, tobacco abuse alcohol use(drinks 10-15 beers per day) who started at 8:00 a.m. having chest pain. Central in location. Pain was intermittent and then became intense. He called EMS and the EKG of the LS showed anterior ST elevation involving V1 to V6. Denies family history of CAD. Procedure Procedure performed:: 1-Moderate sedation that started at 2:56 p.m. and ended at 4:06 p.m. with total duration 70 minutes using 3mg of Versed and 75mcg fentanyl. The registered nurse was Kristian ibarra. 2-Selective left and right coronary angiogram. 3-Left heart catheterization with measurement of LVEDP and measurement of gradient across aortic valve. 4-intravascular ultrasound of the LAD. 4-cutting balloon to mid LAD using 3 by 15 scoring balloon. 5-deployment with drug-eluting stent 2.75 x 18 covering mid LAD. Proximal portion of the stent was post dilated using 3 x 15 noncompliant balloon. 4-Right common femoral arterial angiogram. 5-Deployment of 6 Turkish Angio-Seal. Sedation/Medication given:: Moderate sedation. Access site:: Right common femoral artery. Estimated blood loss:: 10cc Procedure note:: After informed consent patient was brought in to photofinishing laboratory worker with the was draped and prepped in usual manner. Moderate sedation was given and the right groin was infiltrated using 1% lidocaine. 6 Turkish sheath was obtained using micropuncture needle and the modified Seldinger technique. Selective left coronary angiogram was done using CLS 3.5 catheter with the tip of the catheter placed in the left main coronary artery. Subsequently we tried to please luge wire. Without success. We could not cross the lesion. We used 2 luge wires. Then after that I used whisper wire which managed to cross successfully. Then we used 2.5 by 15 balloon inflated it to pressure corresponding to size 2.75mm. After that I tried to pass the IVUS without success. We managed to come to the proximal end of the lesion that measured 3 mm and looked calcified. Then after that I used 3 x 10 Biotronik balloon under nominal pressure. After that and notes that there is calcification and therefore I decided to use scoring balloon scoreflex 3 x 15 and inflated the to nominal pressure for 30 seconds. Two inflations. Then I used a noncompliant balloon 3 x 15 and inflated it to nominal pressure for 20 seconds. I passed the IVUS catheter and noticed that there is calcification and the LAD distal to the lesion measured 2.75 mm. I used tarah 2.75 x 18 stent and deployed it under normal pressure for 25 seconds and then post dilated the proximal and mid segment of the stent using 3 x 15 noncompliant balloon under normal pressure for 15 seconds. Selective right coronary angiogram was done using WRP catheter with the tip of the catheter placed to the right coronary artery. After that 5 Turkish pigtail catheter was advanced across the aortic valve into the left ventricle with measurement of LVEDP and measurement of gradient across aortic valve. Right common femoral arterial angiogram was done. Findings:: 1- left coronary artery is a large artery that divides into large LAD, large circumflex artery. Ostial left main has 30% lesion. 2- left anterior descending artery is a large artery that runs and wraps around the apex. The mid segment there is haziness and 90% lesion. After the lesion there is small diagonal branch that has ostial 90%. Distal LAD 50%. 3- leftcircumflex artery is a large artery and dominant. At the junction of the mid to distal segment there is 60% lesion. Proximally gives rise to a medium size OM1 branch that has ostial 60%. 4- right coronary artery is small to medium in caliber with proximal 50% and in the mid segment 40%. 5- LVEDP was 42 mm Hg and no gradient across aortic valve. 6- opening arterial pressure was 100/58 and closing pressure was 131/76 7- right femoral artery angiogram shows no significant disease in the right common femoral artery. 8-intravascular ultrasound shows that the LAD distal to the lesion measures 2.75 and at the lesion just proximal to it about 3 mm. It is calcified lesion. Assessment and Plan Assessment and plan (1) ST elevation (STEMI) myocardial infarction: Code(s): I21.3 - ST elevation (STEMI) myocardial infarction of unspecified site Status: Acute Plan Continue aspirin, Brilinta -tobacco cessation -alcohol withdrawal precautions. -obtain echocardiogram. -optimize risk factor modification for CAD
--- NOTE | 2025-03-29 16:26 | WPDMODSED ---
Moderate Sedation Note-Pt Data Patient Data Diagnosis: Anterior STEMI Present Complaint: Chest pain Procedure to be performed/Plan: Coronary angiogram Allergies Allergy/AdvReac Type Severity Reaction Status Date / Time No Known Allergies Allergy Verified 03/29/25 14:20 Home Medications ?Medication ?Instructions ?Recorded ?Confirmed ?Type amlodipine 10 mg tablet mg 03/29/25 History atorvastatin 40 mg tablet mg 03/29/25 History hydrochlorothiazide 25 mg tablet mg 03/29/25 History losartan 100 mg tablet mg 03/29/25 History varenicline tartrate 1 mg tablet mg 03/29/25 History Sedation/Anesthesia: No previous sedation/anesthesia problems (including family history). [facility] Past Medical History Medical History Hyperlipidemia Hypertension COPD (chronic obstructive pulmonary disease) Social History Social History Smoking status: Current every day smoker Mod Sed Physical Exam Physical Exam Pre Procedural Exam: Normal: Appearance, Eyes, Ears, Nose, Neck, Throat, Airway, Lungs, Heart Size, Heart Rate, Heart Rhythm, Neuro Exam, Abdomen, Liver, Kidneys, Spleen, Breasts, Genitalia, Extremities and Skin Hours since solid foods: 8 Hours since liquid intake: 8 Mallampati Classification: class II Internal Medicine - PN: Obj Da Vital Signs Vital Signs: Vital Signs - 24 hr 03/29/25 14:05 03/29/25 14:18 03/29/25 14:46 Temperature 36.4 C Pulse Rate 103 H 96 82 Respiratory Rate 24 H 16 Blood Pressure 136/76 132/76 Pulse Oximetry 94 98 Meds/Results Radiology Results: ITS Impressions Chest X-Ray 03/29/25 15:14 IMPRESSION: Prominent bronchovascular markings in the lower lobes with septal thickening which may indicate pneumonitis versus pulmonary edema. Clinical correlation and follow-up advised. Labs 03/29/25 14:15 03/29/25 14:15 Labs: Laboratory Results - last 24 hr 03/29/25 03/29/25 14:15 14:42 WBC 10.7 H RBC 5.29 Hgb 16.7 Hct 47.5 MCV 89.8 MCH 31.6 MCHC 35.2 RDW 12.8 Plt Count 280 MPV 8.6 Immature Gran % (Auto) 0.8 H Neut % (Auto) 71.4 Lymph % (Auto) 17.4 L [place] % (Auto) 9.6 H Eos % (Auto) 0.1 Baso % (Auto) 0.7 Lymph # (Auto) 1.87 [place] # (Auto) 1.0 H Eos # (Auto) 0.0 Baso # (Auto) 0.1 Abs Immat Gran (auto) 0.09 H Absolute Neuts (auto) 7.7 H Absolute Nucleated RBC 0.000 Nucleated RBC % 0.0 PT 12.1 INR 0.9 APTT 27.3 Sodium 133 L Potassium 3.6 Chloride 99 Carbon Dioxide 24 Anion Gap 10 BUN 15 Creatinine 1.23 Estim Creat Clear Calc 90 Estimated GFR > 60 Glucose 166 H Calcium 9.2 Total Bilirubin 0.7 AST 40 ALT 45 Alkaline Phosphatase 57 Troponin I 0.308 H* NT-Pro-B Natriuret Pep 552 H Total Protein 7.6 Albumin 4.1 Nasal MRSA (PCR) Not detected ASA Classification/Sedation ASA Classification/Sedation ASA Class: I Emergent: No Risks: Risks, benefits and alternatives explained and patient/family accepted plan for sedation. Patient re-evaluated immediately prior to sedation.
--- NOTE | 2025-03-29 16:27 | ECG_ITS ---
Test Date: 2025-03-29 16:35:15 Measurements Intervals [place] Rate: 98 P: 14 RI: 184 QRS: 60 QRSD: 97 T: 15 QT: 350 QTc: 447 Interpretive Statements SINUS RHYTHM SEPTAL MYOCARDIAL INFARCTION [40+ ms Q WAVE IN V1/V2], OF INDETERMINATE AGE ACUTE PR CRITICAL ECG Electronically Signed On 03-30-2025 11:31:45 CDT by Rod Messina M.D.
--- NOTE | 2025-03-29 16:27 | P.HP_ITS ---
H&P: HPI History of Present Illness Date/Time: 03/29/25 16:27 Chief Complaint: Chest pain Narrative: 50-year-old patient with history of morbid obesity, hypertension, hyperlipidemia, tobacco abuse alcohol use(drinks 10-15 beers per day) who started at 8:00 a.m. having chest pain. Central in location. Pain was intermittent and then became intense. He called EMS and the EKG of the LS showed anterior ST elevation involving V1 to V6. Denies family history of CAD. Review of Systems Review of Systems: All systems reviewed & are unremarkable except as noted in HPI and below Constitutional: Constitutional: Denies chills, Reports fatigue, Denies fever(s), Denies headache(s) and Denies snoring Eyes: Eyes: Denies eye discharge and Denies loss of vision ENT: Denies dizziness, Denies headache(s), Denies nasal discharge and Denies sore throat Cardiovascular: Cardiovascular: Reports as per HPI, Reports chest pain, Denies syncope, Denies rapid heart rate, Denies leg edema, Denies dyspnea, Reports dyspnea on exertion, Denies orthopnea and Denies paroxysmal nocturnal dyspnea Respiratory: Respiratory: Denies chest congestion, Denies cough, Reports dyspnea, Reports dyspnea on exertion, Reports snoring and Denies wheezing Gastrointestinal: Gastrointestinal: Denies abdominal pain, Denies diarrhea, Denies nausea and Denies vomiting Genitourinary: Genitourinary: Denies hematuria, Denies dysuria, Denies flank pain and Denies urinary frequency Musculoskeletal: Musculoskeletal: Denies myalgias, Denies arthralgias and Denies joint swelling Neurologic: Denies Abnormal speech present, Denies dizziness, Denies syncope, Denies headache(s), Denies focal weakness and Denies loss of vision Psychiatric: Psychiatric: Denies anxiety and Denies depression Endocrine: Endocrine: Denies cold intolerance, Denies fatigue and Denies heat intolerance Hematologic/Lymphatic: Hematologic/Lymphatic: Denies easy bleeding and Denies easy bruising Allergic/Immunologic: Allergic/Immunologic: Denies urticaria and Denies wheezing PMFSH Past Medical History Medical History Hyperlipidemia Hypertension COPD (chronic obstructive pulmonary disease) Social History Social History Smoking status: Current every day smoker Meds Home Medications and Allergies Home Medications ?Medication ?Instructions ?Recorded ?Confirmed ?Type amlodipine 10 mg tablet mg 03/29/25 History atorvastatin 40 mg tablet mg 03/29/25 History hydrochlorothiazide 25 mg tablet mg 03/29/25 History losartan 100 mg tablet mg 03/29/25 History varenicline tartrate 1 mg tablet mg 03/29/25 History Allergies Allergy/AdvReac Type Severity Reaction Status Date / Time No Known Allergies Allergy Verified 03/29/25 14:20 Vital Signs Vital Signs - 24 hr 03/29/25 14:05 03/29/25 14:18 03/29/25 14:46 Temperature 36.4 C Pulse Rate 103 H 96 82 Respiratory Rate 24 H 16 Blood Pressure 136/76 132/76 Pulse Oximetry 94 98 Exam Const: General: cooperative, healthy appearing, comfortable, no acute distress, well developed and well nourished Nutritional Appearance: well nourished Orientation/consciousness: patient oriented x3 HENMT: Head: normal to inspection, normocephalic and atraumatic Ears: hea ring grossly normal bilaterally and external ears normal Face/Nose/Sinus: Normal external nose present, Normal nares present, normal facial exam and No erythema Face and sinus: normal facial exam and no erythema Mouth: Yes moist mucous membranes and No lip abnormal Throat: uvula midline Eyes: General: appearance normal, both eyes and all related structures Eyelids: eyelids normal Sclera: sclerae normal Neck: Neck: normal visual inspection and full ROM Thyroid: thyroid normal Carotids: no bruits Lymphatic: lymphedema not noted Chest: Chest palpation & inspection: normal inspection of the chest and normal palpation of entire chest wall Resp: Effort & Inspection: normal respiratory effort and not labored Auscultation: clear to auscultation bilaterally, no crackles, no rales and no wheezes Cardio: Jugular venous distension: no JVD Rate: regular rate Rhythm: regular rhythm Heart sounds: S1 normal heart sound present, S2 normal heart sound present, no click, no gallops, no murmurs and no rubs Bruits: no carotid bruits GI: Inspection: normal to inspection and non-distended GI Palp: No abdominal tenderness Auscultation: normal bowel sounds Rectal Exam: deferred : General: No CVA tenderness and Yes no CVA tenderness Back/Spine/Pelvis: Back: no CVA tenderness, No CVA tenderness and No erythema Cervical Spine: cervical ROM normal Skin: General skin exam: normal color, no erythema and no pallor Lesions: no lesions Rashes: no rashes Neuro: General: patient oriented x3 and moves all extremities Cranial nerves: Yes facial symmetry Speech: normal speech Motor exam (neuro): 5/5 motor strength present throughout Extrem: General: normal to inspection and full ROM Psych: Appearance: grossly normal, well kempt and disheveled Affect: normal affect H&P: Results Labs Labs: Short CBC 03/29/25 Range/Units 14:15 WBC 10.7 H (4.5-10.0) K/mm3 Hgb 16.7 (14.0-18.0) g/dL Hct 47.5 (42.0-52.0) % Plt Count 280 (150-375) k/mm3 BMP 03/29/25 14:15 Sodium 133 L Potassium 3.6 Chloride 99 Carbon Dioxide 24 BUN 15 Creatinine 1.23 Glucose 166 H Calcium 9.2 Cardiac Enzymes 03/29/25 Range/Units 14:15 Troponin I 0.308 H* (0.000-0.034) ng/mL Liver Function 03/29/25 Range/Units 14:15 Total Bilirubin 0.7 (0.2-1.3) mg/dL AST 40 (17-59) U/L ALT 45 (6-50) U/L Alkaline Phosphatase 57 (38-126) U/L Albumin 4.1 (3.5-5.1) g/dL Assessment and Plan Assessment and plan (1) ST elevation (STEMI) myocardial infarction: Code(s): I21.3 - ST elevation (STEMI) myocardial infarction of unspecified site Status: Acute Plan -anterior STEMI. Risks and benefits of cardiac catheterization discussed with the patient agrees to proceed. Will proceed emergency fashion.
--- NOTE | 2025-03-29 16:48 | ECG_ITS ---
Test Date: 2025-03-30 09:09:34 Measurements Intervals [place] Rate: 88 P: 4 [place]: 143 QRS: 9 QRSD: 100 T: 64 QT: 372 QTc: 450 Interpretive Statements SINUS RHYTHM WITH OCCASIONAL SUPRAVENTRICULAR PREMATURE COMPLEXES SEPTAL MYOCARDIAL INFARCTION , OF INDETERMINATE AGE [40+ ms Q WAVE IN V1/V2] ABNORMAL ECG Compared to ECG 03/29/2025 16:35:15 No significant changes Electronically Signed On 03-30-2025 11:39:57 CDT by Rod Messina M.D.
[2025-03-29] MEDS: MAG HYDROX/AL HYDROX/SIMETH 30 ML UDC PO (17:10)
[2025-03-29] MEDS: SODIUM CHLORIDE 0.9% IV 1,000 ML 125 ML IV CONT (17:14)
--- NOTE | 2025-03-29 17:22 | PC.NURSE ---
This patient, Freddy Carmen, was received from [employer] Line Technician on 03/29/25 at 1645. Patient/family oriented to unit policies and routines
[2025-03-29] MEDS: ATORVASTATIN 40 MG TABLET 80 MG PO (17:53)
[2025-03-29] MEDS: TICAGRELOR 90 MG TABLET PO (21:04)
[2025-03-29] MEDS: VARENICLINE 1 MG TABLET PO (21:04)
[2025-03-29] MEDS: FLUTICASONE/UMECLIDIN/VILANTER 100-62.5-25 MCG ELLIPTA 1 PUFF INHALATION (22:51)
[2025-03-29] MEDS: TEMAZEPAM (*CRX) 15 MG CAPSULE PO (23:27)
[2025-03-30] VITALS (15 sets, daily range): BP systolic 104–154; BP diastolic 57–104; PULSE 70–102; RESP 12–20; TEMP 36.4–37.3; O2SAT 92–97
[2025-03-30 04:10] LABS: Hematocrit 49.2 % (42.0-52.0); Hemoglobin 17.2 g/dL (14.0-18.0); Immature Granulocyte Percent A 0.5 % (0-0.5); Lymphocytes Absolute Auto 1.20 K/mm3 (0.9-3.2); Mean Corpuscular HGB Conc 35.0 g/dl (32-36); Mean Corpuscular Hemoglobin 31.7 pg (26-34); Mean Corpuscular Volume 90.6 fl (80-100); Nucleated Red Blood Cells Absolute Auto 0.000 K/mm3 (0.0-0.012); Nucleated Red Blood Cells Perc 0.0 % (0.0-0.2); Platelet Count Result 240 k/mm3 (150-375); Red Blood Count 5.43 M/mm3 (4.6-6.20); White Blood Count 12.3 K/mm3 (4.5-10.0)
[2025-03-30 04:22] LABS: Anion Gap 9 mmol/L (4-12); Blood Urea Nitrogen 13 mg/dL (9-20); Calcium 9.0 mg/dL (8.4-10.2); Carbon Dioxide 24 mmol/L (22-30); Chloride 99 mmol/L (98-107); Estimated CRCL calculation 108 ml/min; Estimated Glomerular Filt Rate > 60; Glucose 106 mg/dL (65-110); Potassium 3.5 mmol/L (3.4-5.0); Sodium 132 mmol/L (137-145)
[2025-03-30] MEDS: FLUTICASONE/UMECLIDIN/VILANTER 100-62.5-25 MCG ELLIPTA 1 PUFF INHALATION (08:26)
[2025-03-30] MEDS: ASPIRIN 81 MG ENTERIC TABLET PO (08:34)
[2025-03-30] MEDS: LOSARTAN POTASSIUM 100 MG TABLET PO (08:34)
[2025-03-30] MEDS: TICAGRELOR 90 MG TABLET PO ×2 (08:34→20:42)
[2025-03-30] MEDS: VARENICLINE 1 MG TABLET PO ×2 (09:18→20:42)
[2025-03-30] MEDS: MAG HYDROX/AL HYDROX/SIMETH 30 ML UDC PO (09:18)
--- NOTE | 2025-03-30 09:28 | P.CONIN_ITS ---
Assessment and Plan Assessment and plan (1) ST elevation (STEMI) myocardial infarction: Code(s): I21.3 - ST elevation (STEMI) myocardial infarction of unspecified site Status: Acute Assessment and Plan: 03/29: Patient presented with substernal chest pain, sharp in nature, radiating to the left shoulder. Patient also was diaphoretic, had nausea, shortness of breath, no vomiting. -status post PTCA/PCI with EMY x1 to distal LAD and balloon angioplasty to the proximal and mid segment of the LAD, LVEDP was 42 mmHg -continue aspirin, atorvastatin, ticagrelor, losartan, amlodipine (2) Tobacco use: Code(s): Z72.0 - Tobacco use Status: Acute Assessment and Plan: Patient on Varenicline -counseled patient on cessation of tobacco to which he is agreeable (3) Alcohol use disorder: Code(s): F10.90 - Alcohol use, unspecified, uncomplicated Status: Acute Assessment and Plan: Patient drinks 12-15 beers daily -have counseled patient on cessation of drinking alcohol -will add [facility] protocol -thiamine and folic acid (4) Essential hypertension: Code(s): I10 - Essential (primary) hypertension Status: Acute Assessment and Plan: Continue losartan and amlodipine (5) Hyperlipidemia: Code(s): E78.5 - Hyperlipidemia, unspecified Status: Acute Assessment and Plan: Continue atorvastatin (6) COPD (chronic obstructive pulmonary disease): Code(s): J44.9 - Chronic obstructive pulmonary disease, unspecified Status: Acute Assessment and Plan: Continue bronchodilators -continue Trelegy/Ellipta Plan DVT prophylaxis: Status post cardiac catheterization Stress ulcer prophylaxis: Not indicated Nutrition: Heart healthy diet Code Status: Full code Critical Care Time Spent: 48 minutes Due to a high probability of clinically significant, life threatening deterioration, the patient required my highest level of preparedness to intervene emergently and I personally spent this critical care time directly and personally managing the patient. This critical care time included obtaining a history; examining the patient; pulse oximetry; ordering and review of studies; arranging urgent treatment with development of a management plan; evaluation of patient's response to treatment; frequent reassessment; and discussions with other providers. It was exclusive of separately billable procedures and treating other patients and teaching time. Please see Assessment and Plan section and the rest of the note for further information on patient assessment and treatment This dictation may have been done utilizing a voice recognition system. Attempts have been made to correct errors. However, there may be uncorrected grammatical, spelling, and recognitions errors present. 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 LVEDP was 42 mmHg HPI: Freddy Carmen is a 50 year old male with past medical history of hyperlipidemia, obesity, hypertension, tobacco use, alcohol use presented the ED at around 2:00 p.m. on 03/29/2025 with complains of chest pain that started at about 8:00 a.m. on the morning of 03/29/2025. Substernal chest pain, sharp in nature, radiating to the left shoulder. Complained of being diaphoretic, had some nausea but no vomiting along with some shortness of breath. Patient does not have any history of coronary artery disease. Has significant history of tobacco use and alcohol use. He also has emphysema, interstitial lung disease likely related to working in a [employer]. Patient received nitroglycerin per EMS an aspirin. EKG showed ST-elevation in the anterior leads. Code STEMI was activated and patient was taken to the cardiac foundry laborer coreroom status post EMY x1 to distal LAD and balloon angioplasty to the proximal and mid segment of the LAD, LVEDP was 42 mmHg. Post PTCA/PCI patient was transferred to the ICU for further management Patient seen and examined the ICU this morning, is awake, alert, oriented. He is chest pain-free, denies any shortness of breath, nausea, vomiting or diaphoresis. He does smoke 3-4 cigarettes per day that can go up to half a packet per day. He drinks 12-15 beers a day, denies any illicit drug use. He works at the [employer]. Hemodynamically stable, adequate urine output, afebrile Review of Systems 2 Review of Systems: All systems reviewed & are unremarkable except as noted in HPI and below PMFSH Past Medical History Medical History (Updated 03/30/25 @ 09:44 by Cong Fuentes MD) Hyperlipidemia Hypertension COPD (chronic obstructive pulmonary disease) Social History Social History Smoking status: Current every day smoker Tobacco type: cigarettes Alcohol intake: current Drinks per week: 100 Substance use: unknown Substance use type: does not use Do You Feel Safe in your Home?: Yes Lack of Transportation: No Lack of Food: Never True Current Housing: I Have Housing Concerned About Future Housing: No Difficulty Paying Gas/Electric Bills: No Difficulty Paying for Meds: No Currently Unemployed: No Education: Associate Degree Difficulty w/ Childcare or Family Care: No Spiritual care concerns: No Meds Home Medications and Allergies Home Medications ?Medication ?Instructions ?Recorded ?Confirmed ?Type albuterol sulfate 90 mcg/actuation 2 puff inhalation .q4hr PRN SOB 03/29/25 03/29/25 History aerosol inhaler amlodipine 10 mg tablet 10 mg PO DAILY 03/29/25 03/29/25 History atorvastatin 40 mg tablet 40 mg PO QPM 03/29/25 03/29/25 History fluticasone fur. 100 mcg-umeclid 1 inh inhalation Q24H 03/29/25 03/29/25 History 62.5 mcg-vilant 25 mcg inhalat.powder (Trelegy Ellipta) hydrochlorothiazide 25 mg tablet 25 mg PO DAILY 03/29/25 03/29/25 History losartan 100 mg tablet 100 mg PO DAILY 03/29/25 03/29/25 History ticagrelor 90 mg tablet (Brilinta) 90 mg PO Q12HR 30 days #60 tabs 03/29/25 Rx varenicline tartrate 1 mg tablet 1 mg PO BID 03/29/25 03/29/25 History Allergies Allergy/AdvReac Type Severity Reaction Status Date / Time No Known Allergies Allergy Verified 03/29/25 14:20 Vital Signs Vital Signs - 24 hr 03/29/25 14:05 03/29/25 14:18 03/29/25 14:46 Temperature 97.6 F Pulse Rate 103 H 96 82 Pulse Rate [Right Pedal (Dorsalis Pedis)] Respiratory Rate 24 H 16 Blood Pressure 136/76 132/76 Pulse Oximetry 94 98 Oxygen Delivery 03/29/25 16:48 03/29/25 17:03 03/29/25 17:03 Temperature Pulse Rate 100 99 Pulse Rate [Right Pedal (Dorsalis Pedis)] 99 99 Respiratory Rate 14 12 Blood Pressure 149/91 H 149/91 H Pulse Oximetry 94 94 93 Oxygen Delivery Room Air 03/29/25 17:18 03/29/25 17:33 03/29/25 18:00 Temperature Pulse Rate 98 98 99 Pulse Rate [Right Pedal (Dorsalis Pedis)] 97 98 Respiratory Rate 14 14 Blood Pressure 135/87 132/84 Pulse Oximetry 94 94 Oxygen Delivery 03/29/25 18:00 03/29/25 18:03 03/29/25 18:33 Temperature Pulse Rate 99 99 94 Pulse Rate [Right Pedal (Dorsalis Pedis)] 99 Respiratory Rate 19 17 22 H Blood Pressure 137/86 137/86 135/85 Pulse Oximetry 93 93 93 Oxygen Delivery 03/29/25 19:50 03/29/25 20:00 03/29/25 20:00 Temperature 98.5 F Pulse Rate 87 87 Pulse Rate [Right Pedal (Dorsalis Pedis)] Respiratory Rate 18 Blood Pressure 129/82 Pulse Oximetry 93 94 Oxygen Delivery Room Air 03/29/25 22:00 03/30/25 00:00 03/30/25 00:00 Temperature Pulse Rate 85 83 Pulse Rate [Right Pedal (Dorsalis Pedis)] Respiratory Rate 17 Blood Pressure 120/80 Pulse Oximetry 94 92 Oxygen Delivery Room Air 03/30/25 00:00 03/30/25 02:00 03/30/25 03:46 Temperature 98.5 F Pulse Rate 83 80 Pulse Rate [Right Pedal (Dorsalis Pedis)] Respiratory Rate 18 14 Blood Pressure 108/57 L 115/82 Pulse Oximetry 92 95 93 Oxygen Delivery Room Air 03/30/25 04:00 03/30/25 04:00 03/30/25 05:54 Temperature 98.2 F Pulse Rate 80 80 83 Pulse Rate [Right Pedal (Dorsalis Pedis)] Respiratory Rate 16 18 Blood Pressure 128/75 154/104 H Pulse Oximetry 92 93 Oxygen Delivery 03/30/25 08:00 03/30/25 08:00 03/30/25 08:00 Temperature 97.6 F Pulse Rate 86 96 Pulse Rate [Right Pedal (Dorsalis Pedis)] Respiratory Rate 17 Blood Pressure 133/88 Pulse Oximetry 94 Oxygen Delivery Room Air 03/30/25 08:28 Temperature Pulse Rate Pulse Rate [Right Pedal (Dorsalis Pedis)] Respiratory Rate Blood Pressure Pulse Oximetry 93 Oxygen Delivery Room Air Exam 2 Narrative: General: Pleasant gentleman in no acute distress HEENT:? Pupils equal and reactive, sclerae is clear, moist oral mucosa Neck:? Supple Respiratory:? Clear to auscultation bilaterally, no wheezing, adequate air entry Cardiac:? S1-S2 normal, regular rate and rhythm Abdomen:? Soft, nontender, nondistended, normoactive bowel sounds Extremities:? No edema, palpable pedal pulses, right groin site without any ecchymosis or hematoma Neuro:? Patient is awake, alert, oriented x3, nonfocal Skin:? Chronic venous stasis changes noted Psych:? Normal mentation and affect Results Labs 03/30/25 03:46 03/30/25 03:46 Labs: Short CBC 03/29/25 03/30/25 Range/Units 14:15 03:46 WBC 10.7 H 12.3 H (4.5-10.0) K/mm3 Hgb 16.7 17.2 (14.0-18.0) g/dL Hct 47.5 49.2 (42.0-52.0) % Plt Count 280 240 (150-375) k/mm3 BMP 03/29/25 03/30/25 14:15 03:46 Sodium 133 L 132 L Potassium 3.6 3.5 Chloride 99 99 Carbon Dioxide 24 24 BUN 15 13 Creatinine 1.23 1.01 Glucose 166 H 106 Calcium 9.2 9.0 Cardiac Enzymes 03/29/25 Range/Units 14:15 Troponin I 0.308 H* (0.000-0.034) ng/mL Liver Function 03/29/25 Range/Units 14:15 Total Bilirubin 0.7 (0.2-1.3) mg/dL AST 40 (17-59) U/L ALT 45 (6-50) U/L Alkaline Phosphatase 57 (38-126) U/L Albumin 4.1 (3.5-5.1) g/dL Hospitalist MIPS Advance Care Plan I have confirmed that the patient's Advanced Care Plan is present, code status is documented, or surrogate decision maker is listed in patient medical record.: Yes Medication Reconciliation I have utilized all available resources to obtain, update and review the patients current medications (includes all prescriptions, OTC, herbals, cannabis, and nutritional supplements).: Yes
[2025-03-30] MEDS: FOLIC ACID 1 MG/0.2 ML INJ IV PUSH (10:00)
[2025-03-30] MEDS: SODIUM CHLORIDE 0.9% IVPB (10:00)
[2025-03-30] MEDS: THIAMINE HCL IVPB (10:00)
--- NOTE | 2025-03-30 10:06 | PM.PNCARD ---
Progress Note: A&P Assessment and Plan (1) ST elevation (STEMI) myocardial infarction: Code(s): I21.3 - ST elevation (STEMI) myocardial infarction of unspecified site Status: Acute Assessment and Plan: 1- left coronary artery is a large artery that divides into large LAD, large circumflex artery. Ostial left main has 30% lesion. 2- left anterior descending artery is a large artery that runs and wraps around the apex. The mid segment there is haziness and 90% lesion. After the lesion there is small diagonal branch that has ostial 90%. Distal LAD 50%. 3- leftcircumflex artery is a large artery and dominant. At the junction of the mid to distal segment there is 60% lesion. Proximally gives rise to a medium size OM1 branch that has ostial 60%. 4- right coronary artery is small to medium in caliber with proximal 50% and in the mid segment 40%. 5- LVEDP was 42 mm Hg and no gradient across aortic valve. 6- opening arterial pressure was 100/58 and closing pressure was 131/76 7- right femoral artery angiogram shows no significant disease in the right common femoral artery. 8-intravascular ultrasound shows that the LAD distal to the lesion measures 2.75 and at the lesion just proximal to it about 3 mm. It is calcified lesion. Feels okay. Continue aspirin, Brilinta, atorvastatin. 2D echocardiogram with Doppler will be ordered Follow-up with Dr. Farah. Terry for transfer to [facility] (2) Essential hypertension: Code(s): I10 - Essential (primary) hypertension Status: Acute Assessment and Plan: Continue losartan, hydrochlorothiazide, amlodipine. Potassium is low today and will replace with 40 mEq p.o. x1 (3) Hyperlipidemia: Code(s): E78.5 - Hyperlipidemia, unspecified Status: Acute Assessment and Plan: Continue atorvastatin (4) Tobacco use: Code(s): Z72.0 - Tobacco use Status: Acute Assessment and Plan: Tobacco abuse counseling performed (5) Alcohol use disorder: Code(s): F10.90 - Alcohol use, unspecified, uncomplicated Status: Acute Assessment and Plan: DT precaution (6) Heartburn: Code(s): R12 - Heartburn Status: Acute Assessment and Plan: Will add pantoprazole 40 mg daily Subjective Date/time seen: 03/30/25 10:06 Interval history: 50-year-old with STEMI. Catheterization results yesterday:1- left coronary artery is a large artery that divides into large LAD, large circumflex artery. Ostial left main has 30% lesion. 2- left anterior descending artery is a large artery that runs and wraps around the apex. The mid segment there is haziness and 90% lesion. After the lesion there is small diagonal branch that has ostial 90%. Distal LAD 50%. 3- leftcircumflex artery is a large artery and dominant. At the junction of the mid to distal segment there is 60% lesion. Proximally gives rise to a medium size OM1 branch that has ostial 60%. 4- right coronary artery is small to medium in caliber with proximal 50% and in the mid segment 40%. 5- LVEDP was 42 mm Hg and no gradient across aortic valve. 6- opening arterial pressure was 100/58 and closing pressure was 131/76 7- right femoral artery angiogram shows no significant disease in the right common femoral artery. 8-intravascular ultrasound shows that the LAD distal to the lesion measures 2.75 and at the lesion just proximal to it about 3 mm. It is calcified lesion. Date of service 03/30/2025: Feels well today. Has some heartburn but no chest pain, shortness of breath. No groin pain Review of Systems Review of Systems: All systems reviewed & are unremarkable except as noted in HPI and below Constitutional: Constitutional: Denies body ache(s) Eyes: Eyes: Denies blurry vision ENT: Reports Normal hearing present Cardiovascular: Cardiovascular: Denies chest pain Respiratory: Respiratory: Denies chest congestion Gastrointestinal: Gastrointestinal: Reports heartburn Genitourinary: Genitourinary: Denies hematuria Musculoskeletal: Musculoskeletal: Denies back pain Integumentary/Breasts: Skin/Breast: Denies dry skin Neurologic: Denies Abnormal speech present Psychiatric: Psychiatric: Denies anxiety Endocrine: Endocrine: Denies change in body appearance Hematologic/Lymphatic: Hematologic/Lymphatic: Denies easy bleeding Allergic/Immunologic: Allergic/Immunologic: Denies GI upset with certain foods Exam Const: General: cooperative, healthy appearing, comfortable, no acute distress, well developed and well nourished Nutritional Appearance: well nourished Orientation/consciousness: patient oriented x3 HENMT: Head: normal to inspection, normocephalic and atraumatic Ears: hearing grossly normal bilaterally and external ears normal Face/Nose/Sinus: Normal external nose present, Normal nares present, normal facial exam and No erythema Face and sinus: normal facial exam and no erythema Mouth: Yes moist mucous membranes and No lip abnormal Throat: uvula midline Eyes: General: appearance normal, both eyes and all related structures Eyelids: eyelids normal Sclera: sclerae normal Neck: Neck: normal visual inspection and full ROM Thyroid: thyroid normal Carotids: no bruits Lymphatic: lymphedema not noted Chest: Chest palpation & inspection: normal inspection of the chest and normal palpation of entire chest wall Resp: Effort & Inspection: normal respiratory effort and not labored Auscultation: clear to auscultation bilaterally, no crackles, no rales and no wheezes Cardio: Jugular venous distension: no JVD Rate: regular rate Rhythm: regular rhythm Heart sounds: S1 normal heart sound present, S2 normal heart sound present, no click, no gallops, no murmurs and no rubs Bruits: no carotid bruits Other: Right groin is free of hematoma ecchymosis bruit GI: Inspection: normal to inspection and non-distended Auscultation: normal bowel sounds Rectal Exam: deferred : General: No CVA tenderness and Yes no CVA tenderness Back/Spine/Pelvis: Back: no CVA tenderness, No CVA tenderness and No erythema Cervical Spine: cervical ROM normal Skin: General skin exam: normal color, no erythema and no pallor Lesions: no lesions Rashes: no rashes Neuro: General: patient oriented x3 and moves all extremities Cranial nerves: Yes facial symmetry Speech: normal speech and No Abnormal speech present Motor exam (neuro): 5/5 motor strength present throughout Extrem: General: normal to inspection and full ROM Psych: Appearance: grossly normal, well kempt and disheveled Affect: normal affect Objective Data Vital Signs Vital Signs: Vital Signs - 24 hr 03/29/25 14:05 03/29/25 14:18 03/29/25 14:46 Temperature 36.4 C Pulse Rate 103 H 96 82 Pulse Rate [Right Pedal (Dorsalis Pedis)] Respiratory Rate 24 H 16 Blood Pressure 136/76 132/76 Pulse Oximetry 94 98 Oxygen Delivery 03/29/25 16:48 03/29/25 17:03 03/29/25 17:03 Temperature Pulse Rate 100 99 Pulse Rate [Right Pedal (Dorsalis Pedis)] 99 99 Respiratory Rate 14 12 Blood Pressure 149/91 H 149/91 H Pulse Oximetry 94 94 93 Oxygen Delivery Room Air 03/29/25 17:18 03/29/25 17:33 03/29/25 18:00 Temperature Pulse Rate 98 98 99 Pulse Rate [Right Pedal (Dorsalis Pedis)] 97 98 Respiratory Rate 14 14 Blood Pressure 135/87 132/84 Pulse Oximetry 94 94 Oxygen Delivery 03/29/25 18:00 03/29/25 18:03 03/29/25 18:33 Temperature Pulse Rate 99 99 94 Pulse Rate [Right Pedal (Dorsalis Pedis)] 99 Respiratory Rate 19 17 22 H Blood Pressure 137/86 137/86 135/85 Pulse Oximetry 93 93 93 Oxygen Delivery 03/29/25 19:50 03/29/25 20:00 03/29/25 20:00 Temperature 36.9 C Pulse Rate 87 87 Pulse Rate [Right Pedal (Dorsalis Pedis)] Respiratory Rate 18 Blood Pressure 129/82 Pulse Oximetry 93 94 Oxygen Delivery Room Air 03/29/25 22:00 03/30/25 00:00 03/30/25 00:00 Temperature Pulse Rate 85 83 Pulse Rate [Right Pedal (Dorsalis Pedis)] Respiratory Rate 17 Blood Pressure 120/80 Pulse Oximetry 94 92 Oxygen Delivery Room Air 03/30/25 00:00 03/30/25 02:00 03/30/25 03:46 Temperature 36.9 C Pulse Rate 83 80 Pulse Rate [Right Pedal (Dorsalis Pedis)] Respiratory Rate 18 14 Blood Pressure 108/57 L 115/82 Pulse Oximetry 92 95 93 Oxygen Delivery Room Air 03/30/25 04:00 03/30/25 04:00 03/30/25 05:54 Temperature 36.8 C Pulse Rate 80 80 83 Pulse Rate [Right Pedal (Dorsalis Pedis)] Respiratory Rate 16 18 Blood Pressure 128/75 154/104 H Pulse Oximetry 92 93 Oxygen Delivery 03/30/25 08:00 03/30/25 08:00 03/30/25 08:00 Temperature 36.4 C Pulse Rate 86 96 Pulse Rate [Right Pedal (Dorsalis Pedis)] Respiratory Rate 17 Blood Pressure 133/88 Pulse Oximetry 94 Oxygen Delivery Room Air 03/30/25 08:28 Temperature Pulse Rate Pulse Rate [Right Pedal (Dorsalis Pedis)] Respiratory Rate Blood Pressure Pulse Oximetry 93 Oxygen Delivery Room Air Intake/Output Intake/Output: Intake & Output 03/27/25 03/28/25 03/29/25 03/30/25 23:59 23:59 23:59 23:59 Intake Total 240 1120 Output Total 1200 Balance 240 -80 Meds/Results Medications: Active Medications Generic Name Dose Route Start Last Admin Trade Name Freq PRN Reason Stop Dose Admin Hydrocodone Bitart/Acetaminophen 1 tab 03/29/25 16:48 Hydrocodone/Acetaminophen (*Crx) 5-325 Mg Tablet PO Q4-6H PRN Pain Rated 1-3 Al Hydrox/Mg Hydrox/Simethicone 30 ml 03/29/25 16:48 03/30/25 09:18 Mag Hydrox/Al Hydrox/Simeth 30 Ml Udc PO 30 ml Q4H PRN Administration Indigestion Albuterol 2 puff 03/29/25 16:58 Albuterol Sulfate (*Sp) Aerosol 1 Puff INHALATION Q4H PRN Shortness Of Breath Amlodipine Besylate 10 mg 03/30/25 09:00 03/30/25 08:34 Amlodipine Besylate 10 Mg Tablet PO 10 mg DAILY JAY Administration Aspirin 81 mg 03/30/25 09:00 03/30/25 08:34 Aspirin 81 Mg Enteric Tablet PO 81 mg QAM JAY Administration Atorvastatin Calcium 80 mg 03/29/25 18:00 03/29/25 17:53 Atorvastatin 40 Mg Tablet PO 80 mg QPM JAY Administration Calcium Carbonate 200 mg 03/29/25 16:46 Calcium Carbonate (Tums) 500 Mg (200 Mg Elemental) PO Q6H PRN Indigestion Chlordiazepoxide HCl 50 mg 03/30/25 12:00 Chlordiazepoxide (*Crx) 25 Mg Capsule PO Q6HR JAY Fluticasone/Umeclidinium/Vilanterol 1 puff 03/29/25 21:00 03/30/25 08:26 Fluticasone/Umeclidin/Vilanter 100-62.5-25 Mcg Ellipta INHALATION 1 puff HS JAY Administration Folic Acid 1 mg 03/31/25 09:00 Folic Acid 1 Mg/0.2 Ml Inj IV PUSH QAM JAY Thiamine HCl 200 mg/ Sodium 102 mls @ 204 mls/hr 03/30/25 09:45 03/30/25 10:00 Chloride IVPB 03/30/25 10:14 204 mls/hr ONCE ONE Administration Lorazepam 2 mg 03/30/25 09:25 Lorazepam Inj (*Crx) 2 Mg/Ml Vial IV PUSH Q2H PRN CIWA > 15 Losartan Potassium 100 mg 03/30/25 09:00 03/30/25 08:34 Losartan Potassium 100 Mg Tablet PO 100 mg DAILY JAY Administration Nitroglycerin 0.4 mg 03/29/25 16:48 Nitroglycerin Sl 0.4 Mg Tablet SUBLINGUAL Q5MIN PRN Chest Pain Ondansetron HCl 4 mg 03/29/25 16:48 Ondansetron Hcl Odt 4 Mg Tablet PO 03/30/25 16:47 Q4-6H PRN Nausea Ondansetron HCl 4 mg 03/30/25 09:25 Ondansetron Inj 4 Mg/2 Ml Vial IV PUSH Q6H PRN Nausea And Vomiting Temazepam 15 mg 03/29/25 16:48 03/29/25 23:27 Temazepam (*Crx) 15 Mg Capsule PO 15 mg HS PRN Administration Insomnia Thiamine HCl 200 mg 03/31/25 09:00 Thiamine Hcl 200 Mg/2 Ml Vial IV PUSH DAILY [facility] Ticagrelor 90 mg 03/29/25 21:00 03/30/25 08:34 Ticagrelor 90 Mg Tablet PO 90 mg Q12HR JAY Administration Varenicline 1 mg 03/29/25 22:00 03/30/25 09:18 Varenicline 1 Mg Tablet PO 1 mg Q12H JAY Administration Radiology Results: ITS Impressions Chest X-Ray 03/29/25 15:14 IMPRESSION: Prominent bronchovascular markings in the lower lobes with septal thickening which may indicate pneumonitis versus pulmonary edema. Clinical correlation and follow-up advised. Labs Labs: Laboratory Results - last 24 hr 03/29/25 03/29/25 03/30/25 14:15 14:42 03:46 WBC 10.7 H 12.3 H RBC 5.29 5.43 Hgb 16.7 17.2 Hct 47.5 49.2 MCV 89.8 90.6 MCH 31.6 31.7 MCHC 35.2 35.0 RDW 12.8 12.8 Plt Count 280 240 MPV 8.6 8.5 Immature Gran % (Auto) 0.8 H 0.5 Neut % (Auto) 71.4 81.1 H Lymph % (Auto) 17.4 L 9.8 L Cro[place] % (Auto) 9.6 H 8.1 Eos % (Auto) 0.1 0.0 Baso % (Auto) 0.7 0.5 Lymph # (Auto) 1.87 1.20 [place] # (Auto) 1.0 H 1.0 H Eos # (Auto) 0.0 0.0 Baso # (Auto) 0.1 0.1 Abs Immat Gran (auto) 0.09 H 0.06 H Absolute Neuts (auto) 7.7 H 10.0 H Absolute Nucleated RBC 0.000 0.000 Nucleated RBC % 0.0 0.0 PT 12.1 INR 0.9 APTT 27.3 Sodium 133 L 132 L Potassium 3.6 3.5 Chloride 99 99 Carbon Dioxide 24 24 Anion Gap 10 9 BUN 15 13 Creatinine 1.23 1.01 Estim Creat Clear Calc 90 108 Estimated GFR > 60 > 60 Glucose 166 H 106 Calcium 9.2 9.0 Total Bilirubin 0.7 AST 40 ALT 45 Alkaline Phosphatase 57 Troponin I 0.308 H* NT-Pro-B Natriuret Pep 552 H Total Protein 7.6 Albumin 4.1 Nasal MRSA (PCR) Not detected
[2025-03-30] MEDS: PANTOPRAZOLE 40 MG TABLET PO (10:47)
[2025-03-30] MEDS: POTASSIUM CHLORIDE 20 MEQ ER TABLET 40 MEQ PO (10:47)
[2025-03-30] MEDS: chlordiazePOXIDE (*CRX) 25 MG CAPSULE PO ×3 (11:33→23:24)
--- NOTE | 2025-03-30 12:26 | P.CONIM_ITS ---
Assessment and Plan Assessment and plan (1) ST elevation (STEMI) myocardial infarction: Code(s): I21.3 - ST elevation (STEMI) myocardial infarction of unspecified site Status: Acute (2) Tobacco use: Code(s): Z72.0 - Tobacco use Status: Acute (3) Alcohol use disorder: Code(s): F10.90 - Alcohol use, unspecified, uncomplicated Status: Acute (4) Essential hypertension: Code(s): I10 - Essential (primary) hypertension Status: Acute (5) Hyperlipidemia: Code(s): E78.5 - Hyperlipidemia, unspecified Status: Acute (6) COPD (chronic obstructive pulmonary disease): Code(s): J44.9 - Chronic obstructive pulmonary disease, unspecified Status: Acute Plan Freddy Carmen is a 50 year old male is a 50-year-old male who presents to the ED on 03/29/2025 with chest pain that started about 8:00 a.m. in the morning substernal radiating to the left shoulder. Was diaphoretic with associated shortness of breath. No prior history of coronary artery disease but does have risk factors with family history and tobacco abuse. EMS was called. EKG showed ST elevation in anterior leads. Code STEMI was activated and he underwent cardiac catheterization. He is status post EMY x1 to mid distal LAD and balloon angioplasty to the proximal and mid segment of the LAD. He is transferred to ICU post cath for further management. Hospitalist consulted for medical management. He has history of alcohol abuse drinks 12-15 beers every day for several years. He also smokes 5-10 cigarettes for many years. No prior history of alcohol withdrawal. STEMI status post PTCA/PCI to EMY x1 to distal LAD and balloon angioplasty to the proximal and mid segment of the LAD. On aspirin atorvastatin Brilinta losartan amlodipine Tobacco abuse patient on Chantix. Counseling Alcohol use disorder: Drinks 12-15 beers daily on CIWA protocol currently CIWA score 0 Hypertension Hyperlipidemia COPD DVT prophylaxis SCDs Code status full code HPI Date of Consult Consult date: 03/30/25 Requesting Physician: Liam Bynum MD Primary Care Provider: Nallely Rollins, Consult Narrative Narrative: Freddy Carmen is a 50 year old male is a 50-year-old male who presents to the ED on 03/29/2025 with chest pain that started about 8:00 a.m. in the morning substernal radiating to the left shoulder. Was diaphoretic with associated shortness of breath. No prior history of coronary artery disease but does have risk factors with family history and tobacco abuse. EMS was called. EKG showed ST elevation in anterior leads. Code STEMI was activated and he underwent cardiac catheterization. He is status post EMY x1 to mid distal LAD and balloon angioplasty to the proximal and mid segment of the LAD. He is transferred to ICU post cath for further management. Hospitalist consulted for medical management. He has history of alcohol abuse drinks 12-15 beers every day for several years. He also smokes 5-10 cigarettes for many years. No prior history of alcohol withdrawal. Review of Systems 2 Review of Systems: - CONSTITUTIONAL: Denies weight loss, fe sonal and chills. - HEENT: Denies changes in vision and he aring - RESPIRATORY: Denies SOB and cough. - CV: Denies palpitations and CP. - GI: Denies abdominal pain, nausea, vom iting and diarrhea. - : Denies dysuria and urinary frequen cy. - MSK: Denies myalgia and joint pain. - SKIN: Denies rash and pruritus. - NEUROLOGICAL: Denies headache and sync ope. - PSYCHIATRIC: Denies recent changes in mood. Denies anxiety and depression. [facility]LY [facility] Past Medical History Medical History (Updated 03/30/25 @ 10:09 by Rod Messina MD) Hyperlipidemia Hypertension COPD (chronic obstructive pulmonary disease) Social History Social History Smoking status: Current every day smoker Tobacco type: cigarettes Alcohol intake: current Drinks per week: 100 Substance use: unknown Substance use type: does not use Do You Feel Safe in your Home?: Yes Lack of Transportation: No Lack of Food: Never True Current Housing: I Have Housing Concerned About Future Housing: No Difficulty Paying Gas/Electric Bills: No Difficulty Paying for Meds: No Currently Unemployed: No Education: Associate Degree Difficulty w/ Childcare or Family Care: No Spiritual care concerns: No Meds Home Medications and Allergies Home Medications ?Medication ?Instructions ?Recorded ?Confirmed ?Type albuterol sulfate 90 mcg/actuation 2 puff inhalation .q4hr PRN SOB 03/29/25 03/29/25 History aerosol inhaler amlodipine 10 mg tablet 10 mg PO DAILY 03/29/25 03/29/25 History atorvastatin 40 mg tablet 40 mg PO QPM 03/29/25 03/29/25 History fluticasone fur. 100 mcg-umeclid 1 inh inhalation Q24H 03/29/25 03/29/25 History 62.5 mcg-vilant 25 mcg inhalat.powder (Trelegy Ellipta) hydrochlorothiazide 25 mg tablet 25 mg PO DAILY 03/29/25 03/29/25 History losartan 100 mg tablet 100 mg PO DAILY 03/29/25 03/29/25 History ticagrelor 90 mg tablet (Brilinta) 90 mg PO Q12HR 30 days #60 tabs 03/29/25 Rx varenicline tartrate 1 mg tablet 1 mg PO BID 03/29/25 03/29/25 History Allergies Allergy/AdvReac Type Severity Reaction Status Date / Time No Known Allergies Allergy Verified 03/29/25 14:20 Vital Signs Vital Signs - 24 hr 03/29/25 14:05 03/29/25 14:18 03/29/25 14:46 Temperature 97.6 F Pulse Rate 103 H 96 82 Pulse Rate [Right Pedal (Dorsalis Pedis)] Respiratory Rate 24 H 16 Blood Pressure 136/76 132/76 Pulse Oximetry 94 98 Oxygen Delivery 03/29/25 16:48 03/29/25 17:03 03/29/25 17:03 Temperature Pulse Rate 100 99 Pulse Rate [Right Pedal (Dorsalis Pedis)] 99 99 Respiratory Rate 14 12 Blood Pressure 149/91 H 149/91 H Pulse Oximetry 94 94 93 Oxygen Delivery Room Air 03/29/25 17:18 03/29/25 17:33 03/29/25 18:00 Temperature Pulse Rate 98 98 99 Pulse Rate [Right Pedal (Dorsalis Pedis)] 97 98 Respiratory Rate 14 14 Blood Pressure 135/87 132/84 Pulse Oximetry 94 94 Oxygen Delivery 03/29/25 18:00 03/29/25 18:03 03/29/25 18:33 Temperature Pulse Rate 99 99 94 Pulse Rate [Right Pedal (Dorsalis Pedis)] 99 Respiratory Rate 19 17 22 H Blood Pressure 137/86 137/86 135/85 Pulse Oximetry 93 93 93 Oxygen Delivery 03/29/25 19:50 03/29/25 20:00 03/29/25 20:00 Temperature 98.5 F Pulse Rate 87 87 Pulse Rate [Right Pedal (Dorsalis Pedis)] Respiratory Rate 18 Blood Pressure 129/82 Pulse Oximetry 93 94 Oxygen Delivery Room Air 03/29/25 22:00 03/30/25 00:00 03/30/25 00:00 Temperature Pulse Rate 85 83 Pulse Rate [Right Pedal (Dorsalis Pedis)] Respiratory Rate 17 Blood Pressure 120/80 Pulse Oximetry 94 92 Oxygen Delivery Room Air 03/30/25 00:00 03/30/25 02:00 03/30/25 03:46 Temperature 98.5 F Pulse Rate 83 80 Pulse Rate [Right Pedal (Dorsalis Pedis)] Respiratory Rate 18 14 Blood Pressure 108/57 L 115/82 Pulse Oximetry 92 95 93 Oxygen Delivery Room Air 03/30/25 04:00 03/30/25 04:00 03/30/25 05:54 Temperature 98.2 F Pulse Rate 80 80 83 Pulse Rate [Right Pedal (Dorsalis Pedis)] Respiratory Rate 16 18 Blood Pressure 128/75 154/104 H Pulse Oximetry 92 93 Oxygen Delivery 03/30/25 08:00 03/30/25 08:00 03/30/25 08:00 Temperature 97.6 F Pulse Rate 86 96 Pulse Rate [Right Pedal (Dorsalis Pedis)] Respiratory Rate 17 Blood Pressure 133/88 Pulse Oximetry 94 Oxygen Delivery Room Air 03/30/25 08:28 03/30/25 10:00 Temperature Pulse Rate 87 Pulse Rate [Right Pedal (Dorsalis Pedis)] Respiratory Rate Blood Pressure Pulse Oximetry 93 Oxygen Delivery Room Air Exam 2 Narrative: General: Pleasant gentleman in no acute distress HEENT:? Pupils equal and reactive, sclerae is clear, moist oral mucosa Neck:? Supple Respiratory:? Clear to auscultation bilaterally, no wheezing, adequate air entry Cardiac:? S1-S2 normal, regular rate and rhythm Abdomen:? Soft, nontender, nondistended, normoactive bowel sounds Extremities:? No edema, palpable pedal pulses, right groin site without any ecchymosis or hematoma Neuro:? Patient is awake, alert, oriented x3, nonfocal Skin:? Chronic venous stasis changes noted Psych:? Normal mentation and affect Results Labs 03/30/25 03:46 03/30/25 03:46 Labs: Short CBC 03/29/25 03/30/25 Range/Units 14:15 03:46 WBC 10.7 H 12.3 H (4.5-10.0) K/mm3 Hgb 16.7 17.2 (14.0-18.0) g/dL Hct 47.5 49.2 (42.0-52.0) % Plt Count 280 240 (150-375) k/mm3 BMP 03/29/25 03/30/25 14:15 03:46 Sodium 133 L 132 L Potassium 3.6 3.5 Chloride 99 99 Carbon Dioxide 24 24 BUN 15 13 Creatinine 1.23 1.01 Glucose 166 H 106 Calcium 9.2 9.0 Cardiac Enzymes 03/29/25 Range/Units 14:15 Troponin I 0.308 H* (0.000-0.034) ng/mL Liver Function 03/29/25 Range/Units 14:15 Total Bilirubin 0.7 (0.2-1.3) mg/dL AST 40 (17-59) U/L ALT 45 (6-50) U/L Alkaline Phosphatase 57 (38-126) U/L Albumin 4.1 (3.5-5.1) g/dL Hospitalist MIPS Advance Care Plan I have confirmed that the patient's Advanced Care Plan is present, code status is documented, or surrogate decision maker is listed in patient medical record.: Yes Medication Reconciliation I have utilized all available resources to obtain, update and review the patients current medications (includes all prescriptions, OTC, herbals, cannabis, and nutritional supplements).: Yes
--- NOTE | 2025-03-30 12:56 | PC.NURSE ---
This patient, Freddy Carmen, was transferred to [facility] on 03/30/25 at 1249. Personal belongings sent with patient. Report given to Leila HERR. Appropriate documentation sent with patient.
[2025-03-30] MEDS: ATORVASTATIN 40 MG TABLET 80 MG PO (17:25)
[2025-03-31] VITALS (15 sets, daily range): BP systolic 101–134; BP diastolic 61–78; PULSE 64–104; RESP 18–20; TEMP 36.4–36.9; O2SAT 92–100
--- NOTE | 2025-03-31 | ECHO_ITS ---
Patient Info Name: Freddy Carmen Age: 50 years : 1975 Gender: Male Ht: 73 in Wt: 281 lbs BSA: 2.61 m2 HR: 81 bpm BP: 114 / 63 mmHg Technical Quality: Fair Exam Date: 03/31/2025 2:52 PM Patient Status: I Admit Date: 03/29/2025 Exam Type: CA echo dop color flow w con Complete two-dimensional, color flow and Doppler transthoracic echocardiogram is performed with contrast to opacify the left ventricle and to improve the deliniation of the left ventricle endocardial borders. Staff Referring Physician: Mau Hart MD Melt Helper: Justine Lobo Attending Provider: Liam Bynum MD Contrast/Agitated Saline Contrast/Ag. Saline: Definity Amount: 6.00 ml Administered By: Justine Lobo Existing IV Access: Yes IV Access Condition: patent with no signs of infiltration Summary 1. The left ventricle is normal in size with mildly reduced systolic function. The left ventricular ejection fraction is visually estimated to be 40-45%. The entire apex, mid to distal anterior wall, anteroseptum, and distal inferoseptal are severely hypokinetic. 2. The right ventricle is normal in size and systolic function. 3. The aortic valve is not well visualized however does appear to be calcified. Doppler gradients suggest mild aortic stenosis. Left Ventricle The left ventricle is normal in size with mildly reduced systolic function. The left ventricular ejection fraction is visually estimated to be 40-45%. The entire apex, mid to distal anterior wall, anteroseptum, and distal inferoseptal are severely hypokinetic. Right Ventricle The right ventricle is normal in size and systolic function. Left Atria The left atrium is normal size. Right Atria The right atrium is normal size. Atrial Septum The atrial septum is not well visualized. Aortic Valve The aortic valve is not well visualized however does appear to be calcified. Doppler gradients suggest mild aortic stenosis. Pulmonic Valve The pulmonic valve is not well visualized. Mitral Valve The mitral valve is grossly normal. Tricuspid Valve The tricuspid valve is grossly normal. Pericardium/Pleural There is trace amount of pericardial effusion. Inferior Vena Cava Inferior vena cava is not well visualized. Aorta The aortic root at the level of the sinus of Valsalva measures 3.0 cm in diameter. Left Ventricular Outflow Tract Name Value Normal LVOT 2D LVOT Diameter 1.4 cm LVOT Doppler LVOT Peak Velocity 108 cm/s LVOT Peak Gradient 5 mmHg LVOT Mean Gradient 2 mmHg LVOT VTI 22 cm LVOT VTI/AV VTI Ratio 1.0 LVOT Stroke Volume 35 ml LVOT CO 2.6 l/min LVOT CI 1.0 l/min/m2 Pulmonic Valve Name Value Normal PV Doppler PV Peak Velocity 74 cm/s PV Peak Gradient 2 mmHg Mitral Valve Name Value Normal MV Diastolic Function MV E Peak Velocity 95 cm/s MV A Peak Velocity 73 cm/s MV E/A 1.3 MV Decel Time (PW) 166 ms MV Annular TDI MV E/e' (Septal) 11.1 MV E/e' (Lateral) 8.3 MV E/e' (Average) 9.7 Tricuspid Valve Name Value Normal TV Annular TDI TV Lateral Steffany s' Velocity 11.1 cm/s >=9.5 Aortic Valve Name Value Normal AV Doppler AV Peak Velocity 113 cm/s AV Peak Gradient 5 mmHg AV Mean Gradient 3 mmHg AV VTI 24 cm AV Area (Cont Eq VTI) 1.5 cm2 >=3.0 AV Area (Cont Eq Marcos) 1.5 cm2 AV DI (Marcos) 0.95 AV Regurgitation 2D LVOT Area 1.5 cm2 Ventricles Name Value Normal LV Dimensions 2D/MM IVS Diastolic Thickness (2D) 1.3 cm 0.6-1.0 LVID Diastole (2D) 4.3 cm 4.2-5.8 LVIW Diastolic Thickness (2D) 1.3 cm 0.6-1.0 LVID Systole (2D) 3.3 cm 2.5-4.0 LVOT Diameter 1.4 cm LV Mass (2D Cubed) 204.17 g 88.00-224.00 LV Mass Index (2D Cubed) 78 g/m2 49-115 Relative Wall Thickness (2D) 0.60 <=0.42 LV Fractional Shortening/Ejection Fraction 2D/MM LV Fractional Shortening (2D) 22 % 25-43 LV EF (2D Teichholz) 45 % LV Diastolic Volume (4C MOD) 145 ml LV EF (4C MOD) 53 % LV Diastolic Volume (2C MOD) 154 ml LV EF (2C MOD) 47 % LV Diastolic Volume (BP MOD) 145 ml 62-150 LV Diastolic Volume Index (BP MOD) 56 ml/m2 34-74 LV Systolic Volume (BP MOD) 77 ml 21-61 LV Systolic Volume Index (BP MOD) 30 ml/m2 11-31 LV EF (BP MOD) 47 % 52-72 LV Diastolic Length (4C) 9.6 cm LV Systolic Length (4C) 8.6 cm LV Stroke Volume (4C MOD) 77 ml Atria Name Value Normal LA Dimensions LA Volume (4C A-L) 36 ml LA Volume (BP A-L) 39 ml RA Dimensions RA Systolic Major [place] Length (4C) 4.5 cm 2.1-2.7 RA Area (4C) 12.8 cm2 <=18.0 Report Signatures
[2025-03-31 05:05] LABS: Hematocrit 51.2 % (42.0-52.0); Hemoglobin 17.5 g/dL (14.0-18.0); Immature Granulocyte Percent A 0.6 % (0-0.5); Lymphocytes Absolute Auto 1.44 K/mm3 (0.9-3.2); Mean Corpuscular HGB Conc 34.2 g/dl (32-36); Mean Corpuscular Hemoglobin 31.5 pg (26-34); Mean Corpuscular Volume 92.1 fl (80-100); Nucleated Red Blood Cells Absolute Auto 0.000 K/mm3 (0.0-0.012); Nucleated Red Blood Cells Perc 0.0 % (0.0-0.2); Platelet Count Result 250 k/mm3 (150-375); Red Blood Count 5.56 M/mm3 (4.6-6.20); White Blood Count 8.5 K/mm3 (4.5-10.0)
[2025-03-31 05:36] LABS: Alanine Aminotransferase 54 U/L (6-50); Albumin Level 4.0 g/dL (3.5-5.1); Alkaline Phosphatase 55 U/L (38-126); Anion Gap 8 mmol/L (4-12); Aspartate Amino Transferase 87 U/L (17-59); Bilirubin,Total 1.5 mg/dL (0.2-1.3); Blood Urea Nitrogen 11 mg/dL (9-20); Calcium 9.2 mg/dL (8.4-10.2); Carbon Dioxide 26 mmol/L (22-30); Chloride 102 mmol/L (98-107); Estimated CRCL calculation 90 ml/min; Estimated Glomerular Filt Rate > 60; Glucose 97 mg/dL (65-110); Magnesium 2.6 mg/dL (1.6-2.3); Potassium 3.7 mmol/L (3.4-5.0); Sodium 136 mmol/L (137-145); Total Protein 7.4 g/dL (6.3-8.2)
[2025-03-31] MEDS: PANTOPRAZOLE 40 MG TABLET PO (09:24)
[2025-03-31] MEDS: TICAGRELOR 90 MG TABLET PO ×2 (09:24→20:31)
[2025-03-31] MEDS: LOSARTAN POTASSIUM 100 MG TABLET PO (09:24)
[2025-03-31] MEDS: ASPIRIN 81 MG ENTERIC TABLET PO (09:24)
[2025-03-31] MEDS: FOLIC ACID 1 MG/0.2 ML INJ IV PUSH (09:25)
[2025-03-31] MEDS: THIAMINE HCL 200 MG/2 ML VIAL IV PUSH (09:25)
[2025-03-31] MEDS: VARENICLINE 1 MG TABLET PO ×2 (09:27→20:32)
--- NOTE | 2025-03-31 09:28 | PM.IMPN ---
Progress Note: A&P Assessment and Plan (1) ST elevation (STEMI) myocardial infarction: Code(s): I21.3 - ST elevation (STEMI) myocardial infarction of unspecified site Status: Acute (2) Tobacco use: Code(s): Z72.0 - Tobacco use Status: Acute (3) Alcohol use disorder: Code(s): F10.90 - Alcohol use, unspecified, uncomplicated Status: Acute (4) Essential hypertension: Code(s): I10 - Essential (primary) hypertension Status: Acute (5) Hyperlipidemia: Code(s): E78.5 - Hyperlipidemia, unspecified Status: Acute (6) COPD (chronic obstructive pulmonary disease): Code(s): J44.9 - Chronic obstructive pulmonary disease, unspecified Status: Acute Plan Freddy Carmen is a 50 year old male is a 50-year-old male who presents to the ED on 03/29/2025 with chest pain that started about 8:00 a.m. in the morning substernal radiating to the left shoulder. Was diaphoretic with associated shortness of breath. No prior history of coronary artery disease but does have risk factors with family history and tobacco abuse. EMS was called. EKG showed ST elevation in anterior leads. Code STEMI was activated and he underwent cardiac catheterization. He is status post EMY x1 to mid distal LAD and balloon angioplasty to the proximal and mid segment of the LAD. He is transferred to ICU post cath for further management. Hospitalist consulted for medical management. He has history of alcohol abuse drinks 12-15 beers every day for several years. He also smokes 5-10 cigarettes for many years. No prior history of alcohol withdrawal. STEMI status post PTCA/PCI to EMY x1 to distal LAD and balloon angioplasty to the proximal and mid segment of the LAD. On aspirin atorvastatin Brilinta losartan amlodipine Tobacco abuse patient on Chantix. Counseling Alcohol use disorder: Drinks 12-15 beers daily on CIWA protocol currently CIWA score 0. Librium scheduled. Taper at discharge may need but patient refusing librium Hypertension Hyperlipidemia COPD DVT prophylaxis SCDs Code status full code Subjective Date/time seen: 03/31/25 09:28 Interval history: no overnight events, feels well. no alcohol withdrawal symptoms. Review of Systems Review of Systems: All systems reviewed & are unremarkable except as noted in HPI and below Exam Narrative: General: Pleasant gentleman in no acute distress HEENT:? Pupils equal and reactive, sclerae is clear, moist oral mucosa Neck:? Supple Respiratory:? Clear to auscultation bilaterally, no wheezing, adequate air entry Cardiac:? S1-S2 normal, regular rate and rhythm Abdomen:? Soft, nontender, nondistended, normoactive bowel sounds Extremities:? No edema, palpable pedal pulses, right groin site without any ecchymosis or hematoma Neuro:? Patient is awake, alert, oriented x3, nonfocal Skin:? Chronic venous stasis changes noted Psych:? Normal mentation and affect Objective Data Vital Signs Vital Signs: Vital Signs - 24 hr 03/30/25 10:00 03/30/25 11:58 03/30/25 12:00 Temperature Pulse Rate 87 102 H Pulse Rate [Right Pedal (Dorsalis Pedis)] Respiratory Rate Blood Pressure Pulse Oximetry Oxygen Delivery Room Air 03/30/25 12:00 03/30/25 14:00 03/30/25 16:00 Temperature 99.1 F 98.9 F Pulse Rate 92 79 80 Pulse Rate [Right Pedal (Dorsalis Pedis)] Respiratory Rate 12 20 Blood Pressure 104/68 123/73 Pulse Oximetry 95 97 Oxygen Delivery 03/30/25 16:00 03/30/25 16:00 03/30/25 18:00 Temperature Pulse Rate 84 70 Pulse Rate [Right Pedal (Dorsalis Pedis)] Respiratory Rate Blood Pressure Pulse Oximetry Oxygen Delivery Room Air 03/30/25 19:56 03/30/25 20:00 03/30/25 20:00 Temperature 97.8 F Pulse Rate 76 78 Pulse Rate [Right Pedal (Dorsalis Pedis)] Respiratory Rate 18 Blood Pressure 106/61 Pulse Oximetry 96 Oxygen Delivery Room Air 03/30/25 23:24 03/30/25 23:50 03/31/25 00:00 Temperature 97.8 F Pulse Rate 78 75 Pulse Rate [Right Pedal (Dorsalis Pedis)] Respiratory Rate 16 Blood Pressure 109/81 Pulse Oximetry 96 Oxygen Delivery Room Air 03/31/25 03:44 03/31/25 03:44 03/31/25 04:00 Temperature Pulse Rate 77 Pulse Rate [Right Pedal (Dorsalis Pedis)] 79 Respiratory Rate Blood Pressure Pulse Oximetry Oxygen Delivery Room Air 03/31/25 04:00 03/31/25 06:00 03/31/25 07:52 Temperature 97.8 F 97.5 F L Pulse Rate 64 77 79 Pulse Rate [Right Pedal (Dorsalis Pedis)] Respiratory Rate 18 20 Blood Pressure 134/78 132/74 Pulse Oximetry 100 100 Oxygen Delivery Intake/Output Intake/Output: Intake & Output 03/28/25 03/29/25 03/30/25 03/31/25 23:59 23:59 23:59 23:59 Intake Total 240 1830 810 Output Total 1200 Balance 240 630 810 Meds/Results Medications: Active Medications Generic Name Dose Route Start Last Admin Trade Name Freq PRN Reason Stop Dose Admin Hydrocodone Bitart/Acetaminophen 1 tab 03/29/25 16:48 Hydrocodone/Acetaminophen (*Crx) 5-325 Mg Tablet PO Q4-6H PRN Pain Rated 1-3 Al Hydrox/Mg Hydrox/Simethicone 30 ml 03/29/25 16:48 03/30/25 09:18 Mag Hydrox/Al Hydrox/Simeth 30 Ml Udc PO 30 ml Q4H PRN Administration Indigestion Albuterol 2 puff 03/29/25 16:58 Albuterol Sulfate (*Sp) Aerosol 1 Puff INHALATION Q4H PRN Shortness Of Breath Amlodipine Besylate 10 mg 03/30/25 09:00 03/31/25 09:24 Amlodipine Besylate 10 Mg Tablet PO 10 mg DAILY JAY Administration Aspirin 81 mg 03/30/25 09:00 03/31/25 09:24 Aspirin 81 Mg Enteric Tablet PO 81 mg QAM JAY Administration Atorvastatin Calcium 80 mg 03/29/25 18:00 03/30/25 17:25 Atorvastatin 40 Mg Tablet PO 80 mg QPM JAY Administration Calcium Carbonate 200 mg 03/29/25 16:46 Calcium Carbonate (Tums) 500 Mg (200 Mg Elemental) PO Q6H PRN Indigestion Chlordiazepoxide HCl 25 mg 03/30/25 12:00 03/31/25 05:44 Chlordiazepoxide (*Crx) 25 Mg Capsule PO Not Given Q6HR JAY Fluticasone/Umeclidinium/Vilanterol 1 puff 03/29/25 21:00 03/30/25 08:26 Fluticasone/Umeclidin/Vilanter 100-62.5-25 Mcg Ellipta INHALATION 1 puff HS JAY Administration Folic Acid 1 mg 03/31/25 09:00 03/31/25 09:25 Folic Acid 1 Mg/0.2 Ml Inj IV PUSH 1 mg QAM JAY Administration Lorazepam 2 mg 03/30/25 09:25 Lorazepam Inj (*Crx) 2 Mg/Ml Vial IV PUSH Q2H PRN CIWA > 15 Losartan Potassium 100 mg 03/30/25 09:00 03/31/25 09:24 Losartan Potassium 100 Mg Tablet PO 100 mg DAILY JAY Administration Nitroglycerin 0.4 mg 03/29/25 16:48 Nitroglycerin Sl 0.4 Mg Tablet SUBLINGUAL Q5MIN PRN Chest Pain Ondansetron HCl 4 mg 03/30/25 09:25 Ondansetron Inj 4 Mg/2 Ml Vial IV PUSH Q6H PRN Nausea And Vomiting Pantoprazole Sodium 40 mg 03/30/25 10:15 03/31/25 09:24 Pantoprazole 40 Mg Tablet PO 40 mg QAM JAY Administration Perflutren Lipid Microsphere 0 ml 03/30/25 10:12 Perflutren Lipid Microspheres 1.5 Ml Vial Diluted To 10 Ml Total Volume IV PUSH 04/02/25 10:12 ONCE PRN adequate visualization Protocol Temazepam 15 mg 03/29/25 16:48 03/29/25 23:27 Temazepam (*Crx) 15 Mg Capsule PO 15 mg HS PRN Administration Insomnia Thiamine HCl 200 mg 03/31/25 09:00 03/31/25 09:25 Thiamine Hcl 200 Mg/2 Ml Vial IV PUSH 200 mg DAILY JAY Administration Ticagrelor 90 mg 03/29/25 21:00 03/31/25 09:24 Ticagrelor 90 Mg Tablet PO 90 mg Q12HR JAY Administration Varenicline 1 mg 03/29/25 22:00 03/31/25 09:27 Varenicline 1 Mg Tablet PO 1 mg Q12H JAY Administration Radiology Results: ITS Impressions Chest X-Ray 03/29/25 15:14 IMPRESSION: Prominent bronchovascular markings in the lower lobes with septal thickening which may indicate pneumonitis versus pulmonary edema. Clinical correlation and follow-up advised. Labs Labs: Laboratory Results - last 24 hr 03/31/25 04:33 WBC 8.5 RBC 5.56 Hgb 17.5 Hct 51.2 MCV 92.1 MCH 31.5 MCHC 34.2 RDW 13.1 Plt Count 250 MPV 8.9 Immature Gran % (Auto) 0.6 H Neut % (Auto) 72.8 Lymph % (Auto) 17.0 L [place] % (Auto) 8.7 H Eos % (Auto) 0.1 Baso % (Auto) 0.8 Lymph # (Auto) 1.44 [place] # (Auto) 0.7 H Eos # (Auto) 0.0 Baso # (Auto) 0.1 Abs Immat Gran (auto) 0.05 H Absolute Neuts (auto) 6.2 Absolute Nucleated RBC 0.000 Nucleated RBC % 0.0 Sodium 136 L Potassium 3.7 Chloride 102 Carbon Dioxide 26 Anion Gap 8 BUN 11 Creatinine 1.21 Estim Creat Clear Calc 90 Estimated GFR > 60 Glucose 97 Calcium 9.2 Phosphorus 3.1 Magnesium 2.6 H Total Bilirubin 1.5 H AST 87 H ALT 54 H Alkaline Phosphatase 55 Total Protein 7.4 Albumin 4.0
--- NOTE | 2025-03-31 09:50 | PM.DS ---
DS: Admitting Diagnosis Discharge Date 03/31/2025 Admitting Diagnosis STEMI DS: Summary Time Spent with Patient Time attestation: Total time spent providing and/or coordinating discharge services: DS: Data Data Completed and Pending Labs on day of discharge: Labs from last 24 hours 03/31/25 04:33 WBC 8.5 RBC 5.56 Hgb 17.5 Hct 51.2 MCV 92.1 MCH 31.5 MCHC 34.2 RDW 13.1 Plt Count 250 MPV 8.9 Immature Gran % (Auto) 0.6 H Neut % (Auto) 72.8 Lymph % (Auto) 17.0 L [place] % (Auto) 8.7 H Eos % (Auto) 0.1 Baso % (Auto) 0.8 Lymph # (Auto) 1.44 [place] # (Auto) 0.7 H Eos # (Auto) 0.0 Baso # (Auto) 0.1 Abs Immat Gran (auto) 0.05 H Absolute Neuts (auto) 6.2 Absolute Nucleated RBC 0.000 Nucleated RBC % 0.0 Sodium 136 L Potassium 3.7 Chloride 102 Carbon Dioxide 26 Anion Gap 8 BUN 11 Creatinine 1.21 Estim Creat Clear Calc 90 Estimated GFR > 60 Glucose 97 Calcium 9.2 Phosphorus 3.1 Magnesium 2.6 H Total Bilirubin 1.5 H AST 87 H ALT 54 H Alkaline Phosphatase 55 Total Protein 7.4 Albumin 4.0 Discharge Plan Discharge Consulting providers: Cong Fuentes; Taye Medina Patient Disposition: Home Activity: other - see discharge instructions Diet: heart healthy Wound Care Instructions: other - see discharge instructions Patient Instructions: Antibiotic Form, Ticagrelor (By mouth), Heart Attack (DC), How to Stop Smoking (DC), Cigarette Smoking and Your Health (GEN), COPD (Chronic Obstructive Pulmonary Disease) (DC), Chronic Hypertension (DC), Alcohol Withdrawal (DC), Hyperlipidemia (DC), Heart Catheterization (DC), Coronary Intravascular Stent Placement (DC), Angio-Seal (DC) Patient Language: [place] Stand Alone Forms: General Discharge Information Follow-up/Referrals: Liam Bynum MD [Physician] - Discharge Medications: New ticagrelor [Brilinta] 90 mg Tablet 90 mg PO Q12HR 30 Days Qty: 60 0RF chlordiazepoxide HCl 10 mg capsule 10 mg PO TID PRN (Reason: anxiety) Qty: 10 0RF aspirin 81 mg Tablet,Delayed Release (Dr/Ec) 81 mg PO QAM Qty: 30 0RF folic acid 1 mg tablet 1 mg PO DAILY Qty: 30 0RF thiamine HCl (vitamin B1) 100 mg tablet 100 mg PO DAILY Qty: 30 0RF nitroglycerin [Nitrostat] 0.4 mg Tablet, Sublingual 0.4 mg sublingual Q5MIN PRN (Reason: Chest Pain) Qty: 30 0RF Continued atorvastatin 40 mg tablet 40 mg PO QPM amlodipine 10 mg tablet 10 mg PO DAILY losartan 100 mg tablet 100 mg PO DAILY varenicline tartrate 1 mg tablet 1 mg PO BID Trelegy Ellipta 100-62.5-25 mcg blister with device 1 inh INHALATION Q24H Patient Comments: at night albuterol sulfate 90 mcg/actuation HFA aerosol inhaler 2 puff INHALATION .q4hr PRN (Reason: SOB) No Action hydrochlorothiazide 25 mg tablet 25 mg PO DAILY Date of admission: 03/29/25 14:30 Primary Care Provider: Ayo,Nallely Landry Admitting Provider: Liam Bynum Attending physician on admission: Liam Bynum Condition: Stable
[2025-03-31] MEDS: FLUTICASONE/UMECLIDIN/VILANTER 100-62.5-25 MCG ELLIPTA 1 PUFF INHALATION (09:56)
[2025-03-31] MEDS: PERFLUTREN LIPID MICROSPHERES 1.5 ML VIAL DILUTED TO 10 ML TOTAL VOLUME IV PUSH (15:40)
--- NOTE | 2025-03-31 15:51 | IVDEFINITY ---
Prior to administration of IV Definity the patient was educated on the risks and benefits of the imaging enhancing agent including potential adverse side effects. The patient verbalized understanding. Allergies were verified. No exclusion criteria were identified and at least one of the following inclusion criteria were met: 1) physician request, 2) patient technically difficult to image (per the [place] [employer] guidelines of two or more segments not discernable within the apical view), or 3) questionable left ventricular function. ?
[2025-03-31] MEDS: ATORVASTATIN 40 MG TABLET 80 MG PO (17:19)
--- NOTE | 2025-03-31 17:55 | PC.NURSE ---
Meds to [id number] with , Yoselyn.
[2025-03-31] MEDS: TEMAZEPAM (*CRX) 15 MG CAPSULE PO (20:32)
[2025-04-01] VITALS (7 sets, daily range): BP systolic 101–124; BP diastolic 63–72; PULSE 70–76; RESP 20; TEMP 36.4–36.7; O2SAT 94–100
[2025-04-01] MEDS: TICAGRELOR 90 MG TABLET PO (08:12)
[2025-04-01] MEDS: FOLIC ACID 1 MG/0.2 ML INJ IV PUSH (08:12)
[2025-04-01] MEDS: THIAMINE HCL 200 MG/2 ML VIAL IV PUSH (08:12)
[2025-04-01] MEDS: PANTOPRAZOLE 40 MG TABLET PO (08:12)
[2025-04-01] MEDS: LOSARTAN POTASSIUM 100 MG TABLET PO (08:12)
[2025-04-01] MEDS: VARENICLINE 1 MG TABLET PO (08:12)
[2025-04-01] MEDS: ASPIRIN 81 MG ENTERIC TABLET PO (08:12)
--- NOTE | 2025-04-01 08:38 | PM.DS ---
DS: Admitting Diagnosis Discharge Date 04/01/2025 Admitting Diagnosis STEMI DS: Discharge Diagnosis Discharge Diagnosis (1) ST elevation (STEMI) myocardial infarction: Code(s): I21.3 - ST elevation (STEMI) myocardial infarction of unspecified site Status: Acute Assessment and Plan: 1- left coronary artery is a large artery that divides into large LAD, large circumflex artery. Ostial left main has 30% lesion. 2- left anterior descending artery is a large artery that runs and wraps around the apex. The mid segment there is haziness and 90% lesion. After the lesion there is small diagonal branch that has ostial 90%. Distal LAD 50%. 3- leftcircumflex artery is a large artery and dominant. At the junction of the mid to distal segment there is 60% lesion. Proximally gives rise to a medium size OM1 branch that has ostial 60%. 4- right coronary artery is small to medium in caliber with proximal 50% and in the mid segment 40%. 5- LVEDP was 42 mm Hg and no gradient across aortic valve. 6- opening arterial pressure was 100/58 and closing pressure was 131/76 7- right femoral artery angiogram shows no significant disease in the right common femoral artery. 8-intravascular ultrasound shows that the LAD distal to the lesion measures 2.75 and at the lesion just proximal to it about 3 mm. It is calcified lesion. Feeling well this morning and has no complaints. No chest pain. Echo showed moderately reduced LV systolic function with EF 40-45% GDMT with losartan, coreg. GDMT to be optimized as outpatient BP and HR stable overnight with medication adjustments Follow up with Dr. Bynum (2) Essential hypertension: Code(s): I10 - Essential (primary) hypertension Status: Acute Assessment and Plan: Continue losartan, Coreg. Blood pressure stable with medication adjustments. (3) Hyperlipidemia: Code(s): E78.5 - Hyperlipidemia, unspecified Status: Acute Assessment and Plan: Continue atorvastatin (4) Tobacco use: Code(s): Z72.0 - Tobacco use Status: Acute Assessment and Plan: Tobacco abuse counseling performed. He has cut down his smoking significantly in the past year and a half with the use of chantix. He is committed to abstain from smoking indefinitely. (5) Alcohol use disorder: Code(s): F10.90 - Alcohol use, unspecified, uncomplicated Status: Acute Assessment and Plan: DT precaution (6) Heartburn: Code(s): R12 - Heartburn Status: Acute Assessment and Plan: Continue pantoprazole DS: Summary Hospital Course Hospital Course: 50-year-old patient with history of morbid obesity, hypertension, hyperlipidemia, tobacco abuse alcohol use (drinks 10-15 beers per day) who presented to the hospital on 03/29/2025 with a chief complaint of central in location. Pain was intermittent and then became intense. He called EMS and the EKG of the LS showed anterior ST elevation involving V1 to V6. He was taken emergently to the cardiac phlebotomist lab assistant for coronary angiogram and PCI. Findings are as follows: 1- left coronary artery is a large artery that divides into large LAD, large circumflex artery. Ostial left main has 30% lesion. 2- left anterior descending artery is a large artery that runs and wraps around the apex. The mid segment there is haziness and 90% lesion. After the lesion there is small diagonal branch that has ostial 90%. Distal LAD 50%. 3- leftcircumflex artery is a large artery and dominant. At the junction of the mid to distal segment there is 60% lesion. Proximally gives rise to a medium size OM1 branch that has ostial 60%. 4- right coronary artery is small to medium in caliber with proximal 50% and in the mid segment 40%. 5- LVEDP was 42 mm Hg and no gradient across aortic valve. 6- opening arterial pressure was 100/58 and closing pressure was 131/76 7- right femoral artery angiogram shows no significant disease in the right common femoral artery. 8-intravascular ultrasound shows that the LAD distal to the lesion measures 2.75 and at the lesion just proximal to it about 3 mm. It is calcified lesion. Now status post PCI to the mid LAD with EMY x 1 (2.75 x 18 tarah stent covering mid LAD). EF 40-45% on echo. Amlodipine was discontinued and he was started on Coreg. He remained stable throughout his hospital course and is being discharged home today. Time Spent with Patient Time attestation: Total time spent providing and/or coordinating discharge services: Exam Const: General: cooperative, healthy appearing, comfortable, no acute distress, well developed and well nourished Nutritional Appearance: well nourished Orientation/consciousness: patient oriented x3 HENMT: Head: normal to inspection, normocephalic and atraumatic Ears: hearing grossly normal bilaterally and external ears normal Face/Nose/Sinus: Normal external nose present, Normal nares present, normal facial exam and No erythema Face and sinus: normal facial exam and no erythema Mouth: Yes moist mucous membranes and No lip abnormal Eyes: General: appearance normal, both eyes and all related structures Eyelids: eyelids normal Sclera: sclerae normal Neck: Neck: normal visual inspection and full ROM Carotids: no bruits Lymphatic: lymphedema not noted Chest: Chest palpation & inspection: normal inspection of the chest and normal palpation of entire chest wall Resp: Effort & Inspection: normal respiratory effort and not labored Auscultation: clear to auscultation bilaterally, no crackles, no rales and no wheezes Cardio: Jugular venous distension: no JVD Rate: regular rate Rhythm: regular rhythm Heart sounds: S1 normal heart sound present, S2 normal heart sound present, no click, no gallops, no murmurs and no rubs Bruits: no carotid bruits Other: Right groin is free of hematoma ecchymosis bruit GI: Inspection: normal to inspection and non-distended Auscultation: normal bowel sounds Rectal Exam: deferred Back/Spine/Pelvis: Back: no CVA tenderness, No CVA tenderness and No erythema Cervical Spine: cervical ROM normal Skin: General skin exam: normal color, no erythema and no pallor Lesions: no lesions Rashes: no rashes Neuro: General: patient oriented x3 and moves all extremities Cranial nerves: Yes facial symmetry and Yes Normal hearing present Speech: normal speech and No Abnormal speech present Motor exam (neuro): 5/5 motor strength present throughout Extrem: General: normal to inspection and full ROM Other: No edema Psych: Appearance: grossly normal and well kempt Affect: normal affect Discharge Plan Discharge Attending physician on discharge: Cuauhtemoc Natarajan Consulting providers: Cong Fuentes Amardeep Discharging Clinician: Junie Butcher Patient Disposition: Home Activity: other - see discharge instructions Diet: heart healthy Wound Care Instructions: other - see discharge instructions Patient Instructions: Antibiotic Form, Ticagrelor (By mouth), Heart Attack (DC), How to Stop Smoking (DC), Cigarette Smoking and Your Health (GEN), COPD (Chronic Obstructive Pulmonary Disease) (DC), Chronic Hypertension (DC), Alcohol Withdrawal (DC), Hyperlipidemia (DC), Heart Catheterization (DC), Coronary Intravascular Stent Placement (DC), Angio-Seal (DC) Patient Language: Romanian Stand Alone Forms: General Discharge Information, Work/School Release IP Follow-up/Referrals: Liam Bynum MD [Physician] - Discharge Medications: New ticagrelor [Brilinta] 90 mg Tablet 90 mg PO Q12HR 30 Days Qty: 60 0RF chlordiazepoxide HCl 10 mg capsule 10 mg PO TID PRN (Reason: anxiety) Qty: 10 0RF aspirin 81 mg Tablet,Delayed Release (Dr/Ec) 81 mg PO QAM Qty: 30 0RF folic acid 1 mg tablet 1 mg PO DAILY Qty: 30 0RF thiamine HCl (vitamin B1) 100 mg tablet 100 mg PO DAILY Qty: 30 0RF nitroglycerin [Nitrostat] 0.4 mg Tablet, Sublingual 0.4 mg sublingual Q5MIN PRN (Reason: Chest Pain) Qty: 30 0RF Continued atorvastatin 40 mg tablet 40 mg PO QPM amlodipine 10 mg tablet 10 mg PO DAILY losartan 100 mg tablet 100 mg PO DAILY varenicline tartrate 1 mg tablet 1 mg PO BID Trelegy Ellipta 100-62.5-25 mcg blister with device 1 inh INHALATION Q24H Patient Comments: at night albuterol sulfate 90 mcg/actuation HFA aerosol inhaler 2 puff INHALATION .q4hr PRN (Reason: SOB) No Action hydrochlorothiazide 25 mg tablet 25 mg PO DAILY Date of admission: 03/29/25 14:30 Primary Care Provider: Ayo,Nallely Landry Admitting Provider: Liam Bynum Attending physician on admission: Liam Bynum Condition: Stable
--- NOTE | 2025-04-01 08:39 | P.PNCA_ITS ---
Progress Note: A&P Assessment and Plan (1) ST elevation (STEMI) myocardial infarction: Code(s): I21.3 - ST elevation (STEMI) myocardial infarction of unspecified site Status: Acute Assessment and Plan: 1- left coronary artery is a large artery that divides into large LAD, large circumflex artery. Ostial left main has 30% lesion. 2- left anterior descending artery is a large artery that runs and wraps around the apex. The mid segment there is haziness and 90% lesion. After the lesion there is small diagonal branch that has ostial 90%. Distal LAD 50%. 3- left circumflex artery is a large artery and dominant. At the junction of the mid to distal segment there is 60% lesion. Proximally gives rise to a medium size OM1 branch that has ostial 60%. 4- right coronary artery is small to medium in caliber with proximal 50% and in the mid segment 40%. 5- LVEDP was 42 mm Hg and no gradient across aortic valve. 6- opening arterial pressure was 100/58 and closing pressure was 131/76 7- right femoral artery angiogram shows no significant disease in the right common femoral artery. 8-intravascular ultrasound shows that the LAD distal to the lesion measures 2.75 and at the lesion just proximal to it about 3 mm. It is calcified lesion. Feeling well this morning and has no complaints. No chest pain. Echo showed moderately reduced LV systolic function with EF 40-45% GDMT with losartan, coreg. GDMT to be optimized as outpatient Likely discharge tomorrow Follow up with Dr. Bynum (2) Essential hypertension: Code(s): I10 - Essential (primary) hypertension Status: Acute Assessment and Plan: Continue losartan, Coreg. Amlodipine discontinued. (3) Hyperlipidemia: Code(s): E78.5 - Hyperlipidemia, unspecified Status: Acute Assessment and Plan: Continue atorvastatin (4) Tobacco use: Code(s): Z72.0 - Tobacco use Status: Acute Assessment and Plan: Tobacco abuse counseling performed. He has cut down his smoking significantly in the past year and a half with the use of chantix. He is committed to abstain from smoking indefinitely. (5) Alcohol use disorder: Code(s): F10.90 - Alcohol use, unspecified, uncomplicated Status: Acute Assessment and Plan: DT precaution (6) Heartburn: Code(s): R12 - Heartburn Status: Acute Assessment and Plan: Continue pantoprazole Subjective Date/time seen: 03/31/2025 Interval history: Cardiology follow up visit Feeling well this morning and does not have any complaints. No chest pain, shortness of breath, palpitations. Review of Systems Review of Systems: All systems reviewed & are unremarkable except as noted in HPI and below Constitutional: Constitutional: Denies body ache(s), Denies chills, Denies fatigue, Denies fever(s), Denies headache(s) and Reports snoring Eyes: Eyes: Denies blurry vision, Denies eye discharge and Denies loss of vision ENT: Reports Normal hearing present, Denies dizziness, Denies headache(s), Denies nasal discharge and Denies sore throat Cardiovascular: Cardiovascular: Reports as per HPI, Denies chest pain, Denies syncope, Denies rapid heart rate, Denies leg edema, Reports dyspnea, Reports dyspnea on exertion, Denies orthopnea and Denies paroxysmal nocturnal dyspnea Respiratory: Respiratory: Denies chest congestion, Denies cough, Reports dyspnea, Reports dyspnea on exertion, Reports snoring and Denies wheezing Gastrointestinal: Gastrointestinal: Denies abdominal pain, Reports heartburn, Denies diarrhea, Denies nausea and Denies vomiting Genitourinary: Genitourinary: Denies hematuria, Denies dysuria, Denies flank pain and Denies urinary frequency Musculoskeletal: Musculoskeletal: Denies back pain, Denies myalgias, Denies arthralgias and Denies joint swelling Integumentary/Breasts: Skin/Breast: Denies dry skin Neurologic: Reports Normal hearing present, Denies Abnormal speech present, Denies dizziness, Denies syncope, Denies headache(s), Denies focal weakness and Denies loss of vision Psychiatric: Psychiatric: Denies anxiety and Denies depression Endocrine: Endocrine: Denies change in body appearance, Denies cold intolerance, Denies fatigue and Denies heat intolerance Hematologic/Lymphatic: Hematologic/Lymphatic: Denies easy bleeding and Denies easy bruising Allergic/Immunologic: Allergic/Immunologic: Denies GI upset with certain foods, Denies urticaria and Denies wheezing Exam Const: General: cooperative, healthy appearing, comfortable, no acute distress, well developed and well nourished Nutritional Appearance: well nourished Orientation/consciousness: patient oriented x3 HENMT: Head: normal to inspection, normocephalic and atraumatic Ears: hearing grossly normal bilaterally and external ears normal Face/Nose/Sinus: Normal external nose present, Normal nares present, normal facial exam and No erythema Face and sinus: normal facial exam and no erythema Mouth: Yes moist mucous membranes and No lip abnormal Throat: uvula midline Eyes: General: appearance normal, both eyes and all related structures Eyel ids: eyelids normal Sclera: sclerae normal Neck: Neck: normal visual inspection and full ROM Carotids: no bruits Lymphatic: lymphedema not noted Chest: Chest palpation & inspection: normal inspection of the chest Resp: Effort & Inspection: normal respiratory effort and not labored Auscultation: clear to auscultation bilaterally, no crackles, no rales and no wheezes Cardio: Jugular venous distension: no JVD Rate: regular rate Rhythm: regular rhythm Heart sounds: S1 normal heart sound present, S2 normal heart sound present, no click, no gallops, no murmurs and no rubs Bruits: no carotid bruits Other: Right groin is free of hematoma ecchymosis bruit GI: Inspection: normal to inspection and non-distended Rectal Exam: deferred Back/Spine/Pelvis: Cervical Spine: cervical ROM normal Skin: General skin exam: normal color, no erythema and no pallor Lesions: no lesions Rashes: no rashes Neuro: General: patient oriented x3 and moves all extremities Cranial nerves: Yes facial symmetry and Yes Normal hearing present Speech: normal speech and No Abnormal speech present Motor exam (neuro): 5/5 motor strength present throughout Extrem: General: normal to inspection and full ROM Other: No edema Psych: Appearance: grossly normal, well kempt and disheveled Affect: normal affect Objective Data Vital Signs Vital Signs: Vital Signs - 24 hr 03/31/25 09:56 03/31/25 10:00 03/31/25 11:44 Temperature 36.4 C Pulse Rate 80 78 Pulse Rate [Monitor] Respiratory Rate 20 Blood Pressure 114/63 Pulse Oximetry 95 100 Oxygen Delivery Room Air Fraction of Inspired Oxygen 21 03/31/25 12:00 03/31/25 12:00 03/31/25 14:00 Temperature Pulse Rate 78 81 78 Pulse Rate [Monitor] Respiratory Rate 20 Blood Pressure Pulse Oximetry 100 Oxygen Delivery Room Air Fraction of Inspired Oxygen 03/31/25 15:47 03/31/25 20:00 03/31/25 20:00 Temperature 36.4 C 36.9 C Pulse Rate 76 104 H Pulse Rate [Monitor] 78 Respiratory Rate 20 20 Blood Pressure 117/71 101/61 101/61 Pulse Oximetry 98 92 Oxygen Delivery Fraction of Inspired Oxygen 03/31/25 20:00 03/31/25 20:00 03/31/25 20:32 Temperature Pulse Rate 78 78 70 Pulse Rate [Monitor] Respiratory Rate 20 Blood Pressure Pulse Oximetry 92 Oxygen Delivery Room Air Fraction of Inspired Oxygen 21 03/31/25 22:00 04/01/25 00:00 04/01/25 00:00 Temperature 36.7 C Pulse Rate 70 72 Pulse Rate [Monitor] 70 Respiratory Rate 20 Blood Pressure 124/67 124/67 Pulse Oximetry 94 Oxygen Delivery Fraction of Inspired Oxygen 04/01/25 00:00 04/01/25 00:00 04/01/25 02:00 Temperature Pulse Rate 70 70 74 Pulse Rate [Monitor] Respiratory Rate 20 Blood Pressure Pulse Oximetry 94 Oxygen Delivery Room Air Fraction of Inspired Oxygen 21 04/01/25 04:00 04/01/25 04:00 04/01/25 04:00 Temperature 36.5 C Pulse Rate 74 72 Pulse Rate [Monitor] 72 Respiratory Rate 20 20 Blood Pressure 101/63 124/67 Pulse Oximetry 100 94 Oxygen Delivery Room Air Fraction of Inspired Oxygen 04/01/25 04:00 04/01/25 06:00 04/01/25 07:59 Temperature 36.4 C Pulse Rate 72 74 71 Pulse Rate [Monitor] Respiratory Rate 20 Blood Pressure 112/72 Pulse Oximetry 100 Oxygen Delivery Fraction of Inspired Oxygen 04/01/25 08:12 Temperature Pulse Rate 75 Pulse Rate [Monitor] Respiratory Rate Blood Pressure Pulse Oximetry Oxygen Delivery Fraction of Inspired Oxygen Intake/Output Intake/Output: Intake & Output 03/29/25 03/30/25 03/31/25 04/01/25 23:59 23:59 23:59 23:59 Intake Total 240 1830 1790 240 Output Total 1200 550 Balance 156 636 4884 240 Meds/Results Medications: Active Medications Generic Name Dose Route Start Last Admin Trade Name Freq PRN Reason Stop Dose Admin Hydrocodone Bitart/Acetaminophen 1 tab 03/29/25 16:48 Hydrocodone/Acetaminophen (*Crx) 5-325 Mg Tablet PO Q4-6H PRN Pain Rated 1-3 Al Hydrox/Mg Hydrox/Simethicone 30 ml 03/29/25 16:48 03/30/25 09:18 Mag Hydrox/Al Hydrox/Simeth 30 Ml Udc PO 30 ml Q4H PRN Administration Indigestion Albuterol 2 puff 03/29/25 16:58 Albuterol Sulfate (*Sp) Aerosol 1 Puff INHALATION Q4H PRN Shortness Of Breath Aspirin 81 mg 03/30/25 09:00 04/01/25 08:12 Aspirin 81 Mg Enteric Tablet PO 81 mg QAM JAY Administration Atorvastatin Calcium 80 mg 03/29/25 18:00 03/31/25 17:19 Atorvastatin 40 Mg Tablet PO 80 mg QPM JAY Administration Calcium Carbonate 200 mg 03/29/25 16:46 Calcium Carbonate (Tums) 500 Mg (200 Mg Elemental) PO Q6H PRN Indigestion Carvedilol 3.125 mg 03/31/25 21:00 04/01/25 08:12 Carvedilol 3.125 Mg Tablet PO 3.125 mg Q12HR JAY Administration Chlordiazepoxide HCl 25 mg 03/30/25 12:00 04/01/25 06:21 Chlordiazepoxide (*Crx) 25 Mg Capsule PO Not Given Q6HR JAY Fluticasone/Umeclidinium/Vilanterol 1 puff 03/29/25 21:00 03/31/25 09:56 Fluticasone/Umeclidin/Vilanter 100-62.5-25 Mcg Ellipta INHALATION 1 puff HS JAY Administration Folic Acid 1 mg 03/31/25 09:00 04/01/25 08:12 Folic Acid 1 Mg/0.2 Ml Inj IV PUSH 1 mg QAM JAY Administration Lorazepam 2 mg 03/30/25 09:25 Lorazepam Inj (*Crx) 2 Mg/Ml Vial IV PUSH Q2H PRN CIWA > 15 Losartan Potassium 100 mg 03/30/25 09:00 04/01/25 08:12 Losartan Potassium 100 Mg Tablet PO 100 mg DAILY JAY Administration Nitroglycerin 0.4 mg 03/29/25 16:48 Nitroglycerin Sl 0.4 Mg Tablet SUBLINGUAL Q5MIN PRN Chest Pain Ondansetron HCl 4 mg 03/30/25 09:25 Ondansetron Inj 4 Mg/2 Ml Vial IV PUSH Q6H PRN Nausea And Vomiting Pantoprazole Sodium 40 mg 03/30/25 10:15 04/01/25 08:12 Pantoprazole 40 Mg Tablet PO 40 mg QAM JAY Administration Temazepam 15 mg 03/29/25 16:48 03/31/25 20:32 Temazepam (*Crx) 15 Mg Capsule PO 15 mg HS PRN Administration Insomnia Thiamine HCl 200 mg 03/31/25 09:00 04/01/25 08:12 Thiamine Hcl 200 Mg/2 Ml Vial IV PUSH 200 mg DAILY JAY Administration Ticagrelor 90 mg 03/29/25 21:00 04/01/25 08:12 Ticagrelor 90 Mg Tablet PO 90 mg Q12HR JAY Administration Varenicline 1 mg 03/29/25 22:00 04/01/25 08:12 Varenicline 1 Mg Tablet PO 1 mg Q12H JAY Administration Radiology Results: ITS Impressions Chest X-Ray 03/29/25 15:14 IMPRESSION: Prominent bronchovascular markings in the lower lobes with septal thickening which may indicate pneumonitis versus pulmonary edema. Clinical correlation and follow-up advised.
--- NOTE | 2025-04-01 11:21 | PM.IMPN ---
Progress Note: A&P Assessment and Plan (1) ST elevation (STEMI) myocardial infarction: Code(s): I21.3 - ST elevation (STEMI) myocardial infarction of unspecified site Status: Acute (2) Tobacco use: Code(s): Z72.0 - Tobacco use Status: Acute (3) Alcohol use disorder: Code(s): F10.90 - Alcohol use, unspecified, uncomplicated Status: Acute (4) Essential hypertension: Code(s): I10 - Essential (primary) hypertension Status: Acute (5) Hyperlipidemia: Code(s): E78.5 - Hyperlipidemia, unspecified Status: Acute (6) COPD (chronic obstructive pulmonary disease): Code(s): J44.9 - Chronic obstructive pulmonary disease, unspecified Status: Acute Plan Freddy Carmen is a 50 year old male is a 50-year-old male who presents to the ED on 03/29/2025 with chest pain that started about 8:00 a.m. in the morning substernal radiating to the left shoulder. Was diaphoretic with associated shortness of breath. No prior history of coronary artery disease but does have risk factors with family history and tobacco abuse. EMS was called. EKG showed ST elevation in anterior leads. Code STEMI was activated and he underwent cardiac catheterization. He is status post EMY x1 to mid distal LAD and balloon angioplasty to the proximal and mid segment of the LAD. He is transferred to ICU post cath for further management. Hospitalist consulted for medical management. He has history of alcohol abuse drinks 12-15 beers every day for several years. He also smokes 5-10 cigarettes for many years. No prior history of alcohol withdrawal. STEMI status post PTCA/PCI to EMY x1 to distal LAD and balloon angioplasty to the proximal and mid segment of the LAD. On aspirin atorvastatin Brilinta losartan amlodipine. Echo with LV systolic function of 40-45% on goal-directed medical therapy with losartan Coreg. Follow up with Cardiology as an outpatient basis. Tobacco abuse patient on Chantix. Counseling Alcohol use disorder: Drinks 12-15 beers daily on CIWA protocol currently CIWA score 0. Librium scheduled however has not been getting. Is still at risk however no prior history of alcohol withdrawal in the past. Librium p.r.n. order in case he goes into alcohol withdrawal. Discussed with the patient Hypertension Hyperlipidemia COPD DVT prophylaxis SCDs Code status full code Subjective Date/time seen: 04/01/25 11:21 Interval history: No overnight events. No signs of alcohol withdrawal. No chest pain or shortness of breath. Planned for discharge today. Review of Systems Review of Systems: All systems reviewed & are unremarkable except as noted in HPI and below Exam Narrative: General: Pleasant gentleman in no acute distress HEENT:? Pupils equal and reactive, sclerae is clear, moist oral mucosa Neck:? Supple Respiratory:? Clear to auscultation bilaterally, no wheezing, adequate air entry Cardiac:? S1-S2 normal, regular rate and rhythm Abdomen:? Soft, nontender, nondistended, normoactive bowel sounds Extremities:? No edema, palpable pedal pulses, right groin site without any ecchymosis or hematoma Neuro:? Patient is awake, alert, oriented x3, nonfocal Skin:? Chronic venous stasis changes noted Psych:? Normal mentation and affect Objective Data Vital Signs Vital Signs: Vital Signs - 24 hr 03/31/25 11:44 03/31/25 12:00 03/31/25 12:00 Temperature 97.6 F Pulse Rate 78 78 81 Pulse Rate [Monitor] Respiratory Rate 20 20 Blood Pressure 114/63 Pulse Oximetry 100 100 Oxygen Delivery Room Air Fraction of Inspired Oxygen 03/31/25 14:00 03/31/25 15:47 03/31/25 20:00 Temperature 97.6 F 98.4 F Pulse Rate 78 76 104 H Pulse Rate [Monitor] Respiratory Rate 20 20 Blood Pressure 117/71 101/61 Pulse Oximetry 98 92 Oxygen Delivery Fraction of Inspired Oxygen 03/31/25 20:00 03/31/25 20:00 03/31/25 20:00 Temperature Pulse Rate 78 78 Pulse Rate [Monitor] 78 Respiratory Rate 20 Blood Pressure 101/61 Pulse Oximetry 92 Oxygen Delivery Room Air Fraction of Inspired Oxygen 21 03/31/25 20:32 03/31/25 22:00 04/01/25 00:00 Temperature 98.1 F Pulse Rate 70 70 72 Pulse Rate [Monitor] Respiratory Rate 20 Blood Pressure 124/67 Pulse Oximetry 94 Oxygen Delivery Fraction of Inspired Oxygen 04/01/25 00:00 04/01/25 00:00 04/01/25 00:00 Temperature Pulse Rate 70 70 Pulse Rate [Monitor] 70 Respiratory Rate 20 Blood Pressure 124/67 Pulse Oximetry 94 Oxygen Delivery Room Air Fraction of Inspired Oxygen 21 04/01/25 02:00 04/01/25 04:00 04/01/25 04:00 Temperature 97.7 F Pulse Rate 74 74 Pulse Rate [Monitor] 72 Respiratory Rate 20 Blood Pressure 101/63 124/67 Pulse Oximetry 100 Oxygen Delivery Fraction of Inspired Oxygen 04/01/25 04:00 04/01/25 04:00 04/01/25 06:00 Temperature Pulse Rate 72 72 74 Pulse Rate [Monitor] Respiratory Rate 20 Blood Pressure Pulse Oximetry 94 Oxygen Delivery Room Air Fraction of Inspired Oxygen 21 04/01/25 07:59 04/01/25 08:00 04/01/25 08:00 Temperature 97.6 F Pulse Rate 71 71 76 Pulse Rate [Monitor] Respiratory Rate 20 20 Blood Pressure 112/72 Pulse Oximetry 100 100 Oxygen Delivery Room Air Fraction of Inspired Oxygen 04/01/25 08:12 Temperature Pulse Rate 75 Pulse Rate [Monitor] Respiratory Rate Blood Pressure Pulse Oximetry Oxygen Delivery Fraction of Inspired Oxygen Intake/Output Intake/Output: Intake & Output 03/29/25 03/30/25 03/31/25 04/01/25 23:59 23:59 23:59 23:59 Intake Total 240 1830 1790 240 Output Total 1200 550 Balance 229 040 7872 240 Meds/Results Radiology Results: ITS Impressions Chest X-Ray 03/29/25 15:14 IMPRESSION: Prominent bronchovascular markings in the lower lobes with septal thickening which may indicate pneumonitis versus pulmonary edema. Clinical correlation and follow-up advised.
== END 2025-04-01 11:10 | disposition home or self-care (01) | DRG 322 ==
LOC: ANHED 15:08 → ANHICU 15:13 → ANHIMU 03-30 12:49
PROVIDERS: Internal Medicine; Admitting Provider Internal Medicine Cardiovascular Disease; Emergency Provider Emergency Medicine; PCP Family Medicine; Visit Provider Nurse Practitioner
PROC: 4A023N7 Measurement of Cardiac Sampling and Pressure, Left Heart, Percutaneous Approach (ICD-10-PCS; CPT 93452; principal; 2025-03-29 14:30)
PROC: 027034Z Dilation of Coronary Artery, One Artery with Drug-eluting Intraluminal Device, Percutaneous Approach (ICD-10-PCS; CPT 92928; 2025-03-29 14:30)
PROC: 027034Z Dilation of Coronary Artery, One Artery with Drug-eluting Intraluminal Device, Percutaneous Approach (ICD-10-PCS; 2025-03-29 14:30)
PROC: 027034Z Dilation of Coronary Artery, One Artery with Drug-eluting Intraluminal Device, Percutaneous Approach (ICD-10-PCS; 2025-03-29 14:30)
DX: I21.09 ST elevation (STEMI) myocardial infarction involving other coronary artery of anterior wall (principal); I25.10 Atherosclerotic heart disease of native coronary artery without angina pectoris; I25.84 Coronary atherosclerosis due to calcified coronary lesion; I10 Essential (primary) hypertension; E66.01 Morbid (severe) obesity due to excess calories; E78.5 Hyperlipidemia, unspecified; J44.9 Chronic obstructive pulmonary disease, unspecified; F10.10 Alcohol abuse, uncomplicated; F17.210 Nicotine dependence, cigarettes, uncomplicated; Z68.37 Body mass index [BMI] 37.0-37.9, adult
CPT/HCPCS: 36415; 71045; 80048; 80053; 83735; 83880; 84100; 84484; 85025; 85610; 85730; 87641; 92978; 93005; 93458; 94640; 96374; 99291; A9270; C1725; C1753; C1760; C1769; C1874; C1887; C1894; C7532; C8929; C9606; G0269; J0583; J1644; J2003; J2250; J2305; J3010; J3411; J7030; J7040; Q9957